=== PATIENT | female | born 1985 | race Caucasian/White ===

== ENCOUNTER → 2018-05-28 11:29 | Outpatient (CLI) | payer OTHER, MEDICAID, SELFPAY ==
[2018-05-28 12:42] LABS: Alanine Aminotransferase 21 IU/L (9-52); Albumin 4.4 g/dL (3.5-5.0); Albumin Globulin Ratio 1.4 (1.0-2.8); Alkaline Phosphatase 92 U/L (38-126); Aspartate Aminotransferase 18 IU/L (14-36); BUN Creatinine Ratio 12.9 (6-22); Bilirubin Total 0.5 mg/dL (0.2-1.3); Blood Urea Nitrogen 9 mg/dL (7-17); Calcium 9.6 mg/dL (8.4-10.2); Carbon Dioxide 27 mmol/L (22-32); Chloride 102 mmol/L (98-107); Cholesterol 148 mg/dL (140-199); Estimated Glomerular Filt Rate > 60.0 mL/min (>60); Globulin 3.2 g/dL (1.7-4.1); Glucose 89 mg/dL (70-100); HDL Cholesterol 53 mg/dL (40-60); HEMOLYSIS < 15 (0-50); LDL Cholesterol Calculated 70 mg/dL (<100); Potassium 4.2 mmol/L (3.4-5.1); Sodium 137 mmol/L (137-145); Total Protein 7.6 g/dL (6.3-8.2); Triglycerides 125 mg/dL (35-150)
[2018-05-28 12:58] LABS: HCG Quantitative /Beta subunit 376.87 mIU/mL
[2018-05-28 13:11] LABS: TSH w/ Reflex to FT4 1.29 uIU/mL (0.47-4.68)
== END ==
PROVIDERS: PCP Family Medicine; Visit Provider Family Medicine
DX: E66.01 Morbid (severe) obesity due to excess calories (principal); Z68.41 Body mass index [BMI] 40.0-44.9, adult; F32.5 Major depressive disorder, single episode, in full remission; Z32.00 Encounter for pregnancy test, result unknown
CPT/HCPCS: 36415; 80053; 80061; 84443; 84702

== ENCOUNTER → 2018-06-28 14:31 | Outpatient (CLI) | payer OTHER, MEDICAID, SELFPAY ==
[2018-06-28 15:00] LABS: Add Manual Diff / Slide Review NO; Basophils Percent Auto 0.5 % (0-2); Eosinophils Percent Auto 4.4 % (2-4); Hematocrit 39.4 % (36-46); Hemoglobin 13.6 g/dL (12.0-16.0); Lymphocytes Percent Auto 17.1 % (25-40); Mean Corpuscular HGB Conc 34.6 % (30-36); Mean Corpuscular Hemoglobin 30.8 PG (26-34); Neutrophils Absolute Auto 5800 /uL (3000-5900); Platelet Count 202 X10^3/uL (150-400); Red Blood Cell Count 4.43 X10^6/uL (4.0-5.2); Red Cell Distribution Width 13.7 % (11.6-14.8)
[2018-06-28 18:15] LABS: HIV 1 and 2 Antibody NEGATIVE (NEGATIVE); Hep C Virus Ab w/Reflex Quant NEGATIVE s/c (NEGATIVE); Hepatitis B Surface Antigen NEGATIVE s/c (NEGATIVE); Rubella Antibody IgG 21.8 IU/mL (>15)
[2018-06-30 11:35] LABS: Varicella IgG Antibody < 135.00 Index (< 135.00)
[2018-06-30 11:52] LABS: HSV 2 IGG AB < 0.90 index (< 0.90)
[2018-07-02 08:38] LABS: Rapid Plasma Reagin NON-REACTIVE
== END ==
PROVIDERS: PCP Family Medicine; Visit Provider Obstetrics & Gynecology
DX: Z34.91 Encounter for supervision of normal pregnancy, unspecified, first trimester (principal)
CPT/HCPCS: 36415; 80055; 86695; 86696; 86703; 86787; 86803; 86850; 86900; 86901; 87086

== ENCOUNTER → 2018-08-23 15:36 | Outpatient (CLI) | payer OTHER, MEDICAID, SELFPAY ==
[2018-08-27 12:14] LABS: AFP, Serum 30.2 ng/mL; Cigarette Smoker NOT GIVEN; Donated Egg NOT GIVEN; Donor Egg Age NOT GIVEN; Estriol, Free 0.62 ng/mL; Inhibin A, Dimeric 187 pg/mL; Maternal Ethnicity CAUCASIAN; Maternal Weight 272 lbs; Number of Fetuses 1; Previous Pregnancy Down Syndro NOT GIVEN; hCG, MoM 2.18
== END ==
PROVIDERS: PCP Family Medicine; Visit Provider Obstetrics & Gynecology
DX: Z34.92 Encounter for supervision of normal pregnancy, unspecified, second trimester (principal)
CPT/HCPCS: 36415; 82105; 82677; 84702; 86336

== ENCOUNTER → 2018-09-15 10:13 | Outpatient (CLI) | payer OTHER, MEDICAID, SELFPAY ==
--- NOTE | 2018-09-15 10:16 | DI.US.S_ITS ---
PROCEDURE: US OB >= 14 WEEKS FETUS INDICATIONS: anatomy scan OUTSIDE/PRIOR DATING DATA: Last menstrual period (LMP): Unknown. LMP-based estimated date of delivery (ASMY): N./A.. First dating scan (date and location): 06/28/18. Estimated date of delivery (SAMY) from first dating scan: 01/31/19. TECHNIQUE: Real-time scanning was performed of the fetus, with image documentation and biometric measurements. Endovaginal scanning: No COMPARISON: [facility], , OB >= 14 WEEKS FETUS, 07/23/2018, 16:24. FINDINGS: General: A single living intrauterine gestation is present. Presentation: Breech. Placenta: Placental position is anterior, without previa. Amniotic fluid index: 14.5 cm, normal range is 5-24 cm. heart rate: 149 beats per minute. Maternal cervical canal: 3.1 cm long. Normal lower limit is 2.5 cm. biometrics: Biparietal diameter: 20 weeks 2 days Head circumference: 20 weeks 2 days Abdominal circumference: 20 weeks 5 days Femur length: 19 weeks 6 days Estimated gestational age from initial scan: 20 weeks 2 days Composite gestational age from present scan: 20 weeks 2 days Estimated weight and percentile: 344 g; 45th percentile Measurement variability for biometric dating: +/- 7 days from 14 weeks to 15 weeks 6 days gestation, +/- 10 days from 16 weeks to 21 weeks 6 days gestation, +/- 2 weeks from 22 weeks to 27 weeks 6 days gestation, +/- 3 weeks for 28 weeks gestation or later. weight reference: 4500 g or EFW >90/95% is considered macrosomia or large for gestational age. EFW <10% is small for gestational age. EFW 5% or less is considered intra-uterine growth restriction. Anatomic survey: Neuro: Ventricles are non-dilated at less than 10 mm. Cisterna magna is normal at 3-11 mm. Cerebellum is normal in size and morphology. Nuchal skin fold: Normal at less than 6 mm between 14-21 weeks gestational age. Face: Nose and lips appear normal, and the facial profile is suboptimally visualized. Spine: No evidence for spina bifida. Heart: 4-chambered heart is present, with normal ventricular outflow tracts. Diaphragm: Diaphragm is intact. Stomach: Left-sided stomach is present. Kidneys: No hydronephrosis. Normal is less than 5 mm in 2nd trimester, less than 7 mm in 3rd trimester. Cord: 3-vessel cord has orthotopic insertion. Placental cord insertion site not well seen. Bladder: Normal in size. Extremities: All 4 extremities identified. IMPRESSION: 1. Single living IUP redemonstrated and interval growth is normal. 2. Placental cord insertion and facial profile not well seen, otherwise normal anatomy. Dictated by: Paramjit Mejia [facility] Interpreted: Dick Hodge MD on 09/15/2018 at 11:25 Approved by: Dick Hodge M.D. on 09/15/2018 at 15:39
== END ==
PROVIDERS: PCP Family Medicine; Visit Provider Obstetrics & Gynecology
DX: Z34.92 Encounter for supervision of normal pregnancy, unspecified, second trimester (principal); Z36.89 Encounter for other specified antenatal screening; Z3A.20 20 weeks gestation of pregnancy
CPT/HCPCS: 76811

== ENCOUNTER → 2018-10-20 14:05 | Outpatient (CLI) | payer OTHER, MEDICAID, SELFPAY ==
[2018-10-20 15:54] LABS: Hematocrit 36.8 % (36-46); Hemoglobin 12.5 g/dL (12.0-16.0)
[2018-10-20 16:17] LABS: GTT (PREG) 1 Hour PP 50gm Dose 96 mg/dL (76-139)
== END ==
PROVIDERS: PCP Family Medicine; Visit Provider Obstetrics & Gynecology
DX: Z34.82 Encounter for supervision of other normal pregnancy, second trimester (principal)
CPT/HCPCS: 36415; 82950; 85014; 85018; 86850

== ENCOUNTER 2018-12-01 02:27 | Observation (INO) | payer OTHER, MEDICAID, SELFPAY ==
[2018-12-01 03:21] VITALS: BP 159/99; PULSE 94
[2018-12-01] MEDS: LABETALOL 100 MG TABLET PO (03:21)
[2018-12-01] MEDS: ONDANSETRON 4 MG ODT 8 MG PO (03:27)
[2018-12-01 03:35] LABS: Add Manual Diff / Slide Review NO; Basophils Absolute Auto 100 /uL (0-100); Basophils Percent Auto 0.6 % (0-2); Eosinophils Absolute Auto 500 /uL (0-450); Eosinophils Percent Auto 4.2 % (2-4); Hematocrit 37.2 % (36-46); Hemoglobin 12.6 g/dL (12.0-16.0); Lymphocytes Absolute Auto 2000 /uL (1100-4500); Lymphocytes Percent Auto 17.8 % (25-40); Mean Corpuscular HGB Conc 33.8 % (30-36); Mean Corpuscular Hemoglobin 31.2 PG (26-34); Mean Corpuscular Volume 92.4 fL (80-100); Monocytes Absolute Auto 600 /uL (0-900); Monocytes Percent Auto 5.8 % (3-14); Neutrophils Absolute Auto 7900 /uL (1500-7000); Neutrophils Percent Auto 71.6 % (50-75); Platelet Count 174 X10^3/uL (150-400); Red Blood Cell Count 4.03 X10^6/uL (4.0-5.2); Red Cell Distribution Width 13.5 % (11.6-14.8)
[2018-12-01 03:36] LABS: Creatinine Urine Random 22.4 mg/dL
[2018-12-01 03:42] LABS: Aspartate Aminotransferase 12 IU/L (14-36); Blood Urea Nitrogen 6 mg/dL (7-17); Estimated Glomerular Filt Rate > 60.0 mL/min (>60); Uric Acid 5.5 mg/dL (2.5-6.2)
[2018-12-01 03:43] LABS: Microalbumi Creatinin Ratio Ur 26.7 ug/mg CR (<30); Microalbumin Urine Random < 0.6 mg/dL (0-1.6)
== END 2018-12-01 05:00 | disposition home or self-care (01) ==
LOC: LABOR 02:30
PROVIDERS: Admitting Provider Family Medicine; PCP Family Medicine; Visit Provider Family Medicine
DX: O16.3 Unspecified maternal hypertension, third trimester (principal); Z3A.31 31 weeks gestation of pregnancy
CPT/HCPCS: 36415; 59025; 59050; 82043; 82570; 84450; 84550; 85025; G0378; G0379

== ENCOUNTER → 2018-12-29 11:17 | Outpatient (CLI) | payer OTHER, MEDICAID, SELFPAY ==
[2018-12-30 12:36] LABS: Strep Grp B PCR NEG for Grp B Strep
== END ==
PROVIDERS: PCP Family Medicine; Visit Provider Obstetrics & Gynecology
DX: Z3A.35 35 weeks gestation of pregnancy (principal)
CPT/HCPCS: 87653

== ENCOUNTER 2019-01-09 11:30 | Observation (INO) | payer OTHER, MEDICAID, SELFPAY ==
[2019-01-09 13:07] LABS: Add Manual Diff / Slide Review NO; Basophils Absolute Auto 100 /uL (0-100); Basophils Percent Auto 0.5 % (0-2); Eosinophils Absolute Auto 200 /uL (0-450); Eosinophils Percent Auto 1.5 % (2-4); Hematocrit 37.2 % (36-46); Hemoglobin 12.5 g/dL (12.0-16.0); Lymphocytes Absolute Auto 1800 /uL (1100-4500); Lymphocytes Percent Auto 16.4 % (25-40); Mean Corpuscular HGB Conc 33.7 % (30-36); Monocytes Absolute Auto 700 /uL (0-900); Neutrophils Absolute Auto 8300 /uL (1500-7000); Neutrophils Percent Auto 75.6 % (50-75); Platelet Count 179 X10^3/uL (150-400); Red Blood Cell Count 4.04 X10^6/uL (4.0-5.2); Red Cell Distribution Width 13.2 % (11.6-14.8); White Blood Cell Count 10.9 X10^3/uL (4.5-11.0)
[2019-01-09 13:17] LABS: Aspartate Aminotransferase 14 IU/L (14-36); Blood Urea Nitrogen 6 mg/dL (7-17); Estimated Glomerular Filt Rate > 60.0 mL/min (>60); Uric Acid 5.9 mg/dL (2.5-6.2)
== END 2019-01-09 13:34 | disposition home or self-care (01) ==
LOC: LABOR 11:31
PROVIDERS: Admitting Provider Obstetrics & Gynecology; PCP Family Medicine; Visit Provider Obstetrics & Gynecology
DX: O26.893 Other specified pregnancy related conditions, third trimester (principal); R03.0 Elevated blood-pressure reading, without diagnosis of hypertension; Z3A.36 36 weeks gestation of pregnancy
CPT/HCPCS: 36415; 59025; 59050; 84450; 84550; 85025; G0378; G0379

== ENCOUNTER 2019-01-12 11:21 | Outpatient (CLI) | payer OTHER, MEDICAID, SELFPAY ==
--- NOTE | 2019-01-12 11:47 | PM.OBTRLD ---
Visit Information Visit Information Date of evaluation: 01/12/19 Primary OB Provider: Rozina Kilpatrick Reason for Evaluation: Yes non-stress test non-stress test reason: hypertension/pre-eclampsia and other (Contractions) PFSH Medical History DJD (degenerative joint disease), lumbosacral (Chronic) Obesity (Chronic) Sleep apnea (Chronic) depression (Resolved) Surgical History History of microdiscectomy (Resolved 11/2015) History of third molar tooth extraction (Resolved) Status post epidural steroid injection (Resolved 03/2016) Social History Smoking Status: Former smoker Social History Smoking Status: Former smoker Evaluation Evaluation Baseline heart rate: 135 monitor accelerations: Present monitor decelerations: Absent Contraction Frequency (minutes): 15 Uterine Contraction Intensity: Mild Category of Tracing: I Diagnosis, Plan/Disposition Final Diagnosis (1) 37 weeks gestation of : Current Visit: Yes Status: Acute (2) Gestational hypertension: Current Visit: Yes Status: Acute Plan/Disposition Plan: Discharge to home Follow-up 1 week OB Disposition: home
== END 2019-01-12 11:50 | disposition home or self-care (01) ==
LOC: LABOR 11:50 → OB 01-14 10:53
PROVIDERS: PCP Family Medicine; Visit Provider Obstetrics & Gynecology
DX: Z34.83 Encounter for supervision of other normal pregnancy, third trimester (principal); Z3A.37 37 weeks gestation of pregnancy
CPT/HCPCS: 59025; G0378; G0379

== ENCOUNTER 2019-01-22 20:24 | Outpatient (CLI) | payer OTHER, MEDICAID, SELFPAY | END 2019-01-22 22:05 | disposition home or self-care (01) | LOC: OB 01-24 12:56 | PROVIDERS: PCP Family Medicine; Visit Provider Obstetrics & Gynecology | DX: O21.8 Other vomiting complicating pregnancy (principal); Z3A.38 38 weeks gestation of pregnancy | CPT/HCPCS: 59025; 59050; G0378; G0379 ==

== ENCOUNTER 2019-01-27 13:46 | Outpatient (CLI) | payer OTHER, MEDICAID, SELFPAY ==
[2019-01-27 14:47] LABS: Appearance Urine UA CLEAR; Bilirubin Urine UA NEGATIVE (NEGATIVE); Color Urine UA YELLOW; Glucose Urine UA NEGATIVE (Negative); Ketones Urine UA NEGATIVE (NEGATIVE); Leukocyte Esterase Urine UA NEGATIVE (NEGATIVE); Nitrite Urine UA NEGATIVE (Negative); Occult Blood Urine UA NEGATIVE (Negative); Protein Urine UA NEGATIVE (Negative); RBC Urine None Seen (0-5/HPF); Urobilinogen Urine UA 0.2 E.U./dL (0.2); pH Urine UA 7.5 (4.5-8.0)
[2019-01-27 14:53] LABS: Amorphous Sediment Urine 1+; Bacteria Urine Occasional (0-1); Squamous Epithelial Cell Urine 1-5 /HPF; WBC Urine 0-1/HPF (0-5/HPF)
[2019-01-27 14:54] LABS: Culture Indicated Urine Cult Not Indicated; Mucus Urine 1+ (Negative)
== END 2019-01-27 15:01 | disposition home or self-care (01) ==
LOC: OB 01-28 13:20
PROVIDERS: PCP Family Medicine; Visit Provider Obstetrics & Gynecology
DX: O47.1 False labor at or after 37 completed weeks of gestation (principal); Z3A.39 39 weeks gestation of pregnancy; O13.9 Gestational [pregnancy-induced] hypertension without significant proteinuria, unspecified trimester
CPT/HCPCS: 59025; 81001; G0378; G0379

== ENCOUNTER 2019-01-27 21:32 | Inpatient (IN) | payer OTHER, MEDICAID, SELFPAY ==
[2019-01-27] MEDS: OXYTOCIN 10 UNIT/ML VIAL IM (22:05)
--- NOTE | 2019-01-27 22:23 | PM.OBPRVD ---
Delivery date: 01/27/19 Intrapartal events: None and Precipitous Labor < 3 hours Induction method: none Delivery augmentation: rupture of membranes Delivery monitor: external FHT and external uterine Route of delivery: L&D Laceration Description: None Estimated blood loss (mL): 200 Anesthesia type: None Complications: None Narrative: The patient is a 33-year-old three para two who was at 39 and half weeks. Patient had uneventful . She did have elevated blood pressures in the last couple of weeks and was placed on labetalol 200 mg p.o. t.i.d. and had normal blood pressures. Laboratory studies were all normal. Patient is group B strep negative. She is Rh negative and received RhoGAM at 28 weeks. Patient presented at 9 cm. Membranes were ruptured and the patient quickly delivered a live-born female infant with scores of nine at 1 min and nine at 5 min in good condition. There were no perineal tears no cervical tears and no vaginal tears. The placenta delivered spontaneously. Cord had three vessels. This may blood loss was 200 cc. Plan for aftercare: Routine Labetalol 200 mg p.o. t.i.d. IV labetalol if necessary
[2019-01-27] MEDS: OXYCODONE/ACETAMINOPHEN 5/325 TABLET 2 TAB PO (22:40)
[2019-01-27] MEDS: IBUPROFEN 600 MG TABLET PO (22:40)
[2019-01-28] MEDS: LABETALOL 100 MG TABLET 200 MG PO ×4 (00:23→21:04)
[2019-01-28] MEDS: IBUPROFEN 600 MG TABLET PO ×3 (06:59→23:42)
[2019-01-28 07:59] VITALS: BP 202/12; PULSE 78
[2019-01-28] MEDS: LABETALOL 20 MG/4 ML SYRINGE 10 MG IV (07:59)
[2019-01-28] MEDS: ONDANSETRON 4 MG/2 ML INJ IV (07:59)
[2019-01-28 08:05] VITALS: BP 184/104
[2019-01-28 09:08] LABS: Aspartate Aminotransferase 56 IU/L (14-36); BUN Creatinine Ratio 15.7 (6-22); Blood Urea Nitrogen 11 mg/dL (7-17); Estimated Glomerular Filt Rate > 60.0 mL/min (>60); Uric Acid 6.8 mg/dL (2.5-6.2)
[2019-01-28 09:16] LABS: Add Manual Diff / Slide Review NO; Basophils Absolute Auto 100 /uL (0-100); Basophils Percent Auto 0.6 % (0-2); Eosinophils Absolute Auto 100 /uL (0-450); Eosinophils Percent Auto 1.4 % (2-4); Hemoglobin 12.3 g/dL (12.0-16.0); Lymphocytes Absolute Auto 1900 /uL (1100-4500); Lymphocytes Percent Auto 18.2 % (25-40); Mean Corpuscular HGB Conc 34.1 % (30-36); Mean Corpuscular Hemoglobin 30.9 PG (26-34); Mean Corpuscular Volume 90.6 fL (80-100); Monocytes Absolute Auto 700 /uL (0-900); Monocytes Percent Auto 6.2 % (3-14); Neutrophils Absolute Auto 7800 /uL (1500-7000); Neutrophils Percent Auto 73.6 % (50-75); Platelet Count 186 X10^3/uL (150-400); Red Blood Cell Count 3.98 X10^6/uL (4.0-5.2); Red Cell Distribution Width 13.2 % (11.6-14.8); White Blood Cell Count 10.6 X10^3/uL (4.5-11.0)
[2019-01-28 10:31] VITALS: BP 178/107; PULSE 86
[2019-01-28 10:32] VITALS: BP 175/107; PULSE 86
[2019-01-28] MEDS: LABETALOL 20 MG/4 ML SYRINGE IV (10:32)
[2019-01-28 11:38] LABS: Bilirubin Urine UA NEGATIVE (NEGATIVE); Color Urine UA YELLOW; Glucose Urine UA NEGATIVE (Negative); Ketones Urine UA NEGATIVE (NEGATIVE); Leukocyte Esterase Urine UA TRACE (NEGATIVE); Nitrite Urine UA NEGATIVE (Negative); Occult Blood Urine UA 3+ (Negative); Protein Urine UA NEGATIVE (Negative); Specific Gravity Urine UA <=1.005 (1.000-1.035); Urobilinogen Urine UA 0.2 E.U./dL (0.2)
[2019-01-28 11:43] LABS: Appearance Urine UA Slightly Cloudy
[2019-01-28 11:46] LABS: Bacteria Urine Occasional (0-1); RBC Urine 30-100/HPF (0-5/HPF); WBC Urine 0-1/HPF (0-5/HPF)
[2019-01-28 11:47] LABS: Culture Indicated Urine Specimen Cultured
[2019-01-28] MEDS: OXYCODONE/ACETAMINOPHEN 5/325 TABLET 2 TAB PO ×3 (11:48→21:07)
[2019-01-28 16:49] VITALS: BP 149/93; PULSE 78
[2019-01-28 21:04] VITALS: BP 175/109; PULSE 73
[2019-01-29] MEDS: OXYCODONE/ACETAMINOPHEN 5/325 TABLET 2 TAB PO ×3 (05:30→21:00)
[2019-01-29] MEDS: IBUPROFEN 600 MG TABLET PO ×3 (06:40→21:00)
--- NOTE | 2019-01-29 09:15 | P.PNOB_ITS ---
Subjective - OB Patient comments: tolerating diet, flatus present and other (Marginal pain control) baby status: other (Baby very jittery with low blood sugar may be secondary to opiate addiction) feeding status: exclusively breast feeding Narrative: Patient is a 33-year-old status post rapid precipitous delivery. Patient is a chronic hypertensive who was on 200 mg t.i.d. of labetalol. Patient also had a chronic pain syndrome and took at least three Vicodin a day during the . the patient's blood pressures have been elevated requiring her standard p.o. labetalol dose plus intermittent 20 mg doses of IV labetalol. She has mildly elevated liver function tests. Platelets are normal. Her uric acid is mildly elevated. Her urine protein is negative. Her blood pressures have fluctuated widely from a low of of 149/87 to a high of 174/107. The difference appears to be movement and pain related. Date Patient Seen: 01/29/19 Time Patient Seen: 09:13 Interval history: Please see above Exam Vital Signs (past 8 hours): Fundus U minus three Lochia scant Reflexes were 1+ or less Objective Labs Result Diagrams: 01/28/19 09:05 01/28/19 08:55 Labs: Laboratory Results - last 24 hr 01/28/19 01/28/19 01/28/19 08:55 09:05 11:20 WBC 10.6 RBC 3.98 L Hgb 12.3 Hct 36.0 MCV 90.6 MCH 30.9 MCHC 34.1 RDW 13.2 Plt Count 186 Neut % (Auto) 73.6 Lymph % (Auto) 18.2 L [place] % (Auto) 6.2 Eos % (Auto) 1.4 L Baso % (Auto) 0.6 Neut # (Auto) 7800 H Lymph # (Auto) 1900 [place] # (Auto) 700 Eos # (Auto) 100 Baso # (Auto) 100 BUN 11 Creatinine 0.70 Estimated GFR > 60.0 BUN/Creatinine Ratio 15.7 Uric Acid 6.8 H AST 56 H Urine Color Yellow Urine Appearance Slightly cloudy Urine pH 7.0 Ur Specific [place] <=1.005 Urine Protein Negative Urine Glucose (UA) Negative Urine Ketones Negative Urine Occult Blood 3+ H Urine Nitrate Negative Urine Bilirubin Negative Urine Urobilinogen 0.2 Ur Leukocyte Esterase Trace H Urine RBC 30-100/hpf H D Urine WBC 0-1/hpf Urine Bacteria Occasional (0-1) Ur Culture Indicated? Specimen cultured Assessment & Plan (1) Chronic hypertension complicating or reason for care during childbirth: Status: Acute Assessment and plan: Will continue on labetalol 200 t.i.d. Will repeat CBC, liver function tests and renal function tests Current Visit: Yes Plan day: 2 plan OB: other (Monitor blood pressure) Time Spent With Patient Total time spent is greater than 50% in coordination of care (as documented) at patient's floor/unit and/or counseling patient: less than 15 minutes
[2019-01-29 09:22] VITALS: BP 149/87; PULSE 79
[2019-01-29] MEDS: LABETALOL 100 MG TABLET 200 MG PO ×3 (09:22→20:53)
[2019-01-29] MEDS: PRENATAL VIT,CALC/IRON/FOLIC 1 TABLET 1 TAB PO (09:24)
[2019-01-29] MEDS: DOCUSATE 250 MG CAPSULE PO (09:24)
[2019-01-29 10:05] LABS: Add Manual Diff / Slide Review NO; Basophils Absolute Auto 100 /uL (0-100); Basophils Percent Auto 0.6 % (0-2); Eosinophils Absolute Auto 100 /uL (0-450); Eosinophils Percent Auto 1.1 % (2-4); Hematocrit 35.3 % (36-46); Hemoglobin 11.9 g/dL (12.0-16.0); Lymphocytes Absolute Auto 1800 /uL (1100-4500); Lymphocytes Percent Auto 21.5 % (25-40); Mean Corpuscular HGB Conc 33.7 % (30-36); Mean Corpuscular Hemoglobin 30.9 PG (26-34); Mean Corpuscular Volume 91.6 fL (80-100); Monocytes Absolute Auto 400 /uL (0-900); Monocytes Percent Auto 4.5 % (3-14); Neutrophils Absolute Auto 6200 /uL (1500-7000); Neutrophils Percent Auto 72.3 % (50-75); Platelet Count 191 X10^3/uL (150-400); Red Blood Cell Count 3.85 X10^6/uL (4.0-5.2); Red Cell Distribution Width 13.5 % (11.6-14.8); White Blood Cell Count 8.5 X10^3/uL (4.5-11.0)
[2019-01-29 10:15] LABS: Aspartate Aminotransferase 23 IU/L (14-36); Estimated Glomerular Filt Rate > 60.0 mL/min (>60); Uric Acid 7.4 mg/dL (2.5-6.2)
[2019-01-29 16:11] VITALS: BP 168/90; PULSE 78
[2019-01-29] MEDS: LANOLIN OINT 7 GM 1 APPLIC TOP (17:02)
[2019-01-29 20:53] VITALS: BP 156/84; PULSE 88
[2019-01-29] MEDS: CALCIUM CARBONATE 500 MG TAB 1000 MG PO (22:46)
[2019-01-30] MEDS: OXYCODONE/ACETAMINOPHEN 5/325 TABLET 2 TAB PO ×4 (01:35→14:37)
[2019-01-30 06:33] VITALS: BP 222/109
[2019-01-30] MEDS: LABETALOL 100 MG TABLET 200 MG PO ×2 (06:33→14:36)
[2019-01-30] MEDS: IBUPROFEN 600 MG TABLET PO ×2 (06:35→13:15)
[2019-01-30] MEDS: PRENATAL VIT,CALC/IRON/FOLIC 1 TABLET 1 TAB PO (09:09)
[2019-01-30] MEDS: DOCUSATE 250 MG CAPSULE PO (09:10)
--- NOTE | 2019-01-30 09:53 | P.DS_ITS ---
Discharge Providers Date of admission: 01/27/19 21:32 Discharge Date: 01/30/19 Primary care physician: Mikayla Aly DO Consults: 01/27/19 22:12 Consult to Strike Operations Officer Routine Comment: Discharge provider: Jammie Lui DO Summary Date Patient Seen: 01/30/19 Time Patient Seen: 09:30 Procedures: Spontaneous vaginal delivery Hospital Course: Patient is a 33 year old s/p precipitous vaginal delivery on 01/28/[address] Peña. was complicated by chronic hypertension managed with labetalol 200 mg TID and chronic pain on hydrocodone throughout . blood pressures were quite elevated despite usual labetalol and prn IV labetalol. Initial AST was mildly elevated however repeat normal. Platelets normal. Urine protein was negative. Patient denied headache, vision changes, RUQ pain or LE edema. Exacerbation of chronic hypertension felt to be due to pain and stress (issues with , concerns for withdrawal, hypoglycemia) rather than superimposed pre-eclampsia. Pressures ranged from 140's/80's to 220's/100's. Day of discharge blood pressure came down to 150's/80's after nifedipine and usual labetalol. Issues in resolved and she was eager to return home to her and three other children. Vaginal bleeding was light to moderate. She was breast and bottle feeding as she did with her older children. Pain was controlled with Percocet throughout her hospitalization. Patient declined percocet on discharge stating she had her usual hydrocodone at home. Recommended ibuprofen as well. Instructed patient to call first thing Thursday morning to schedule a blood pressure check in 2-3 days when she brings her to clinic. Patient aware of symptoms of pre-eclampsia and signs/symptoms to return to the center. She was very eager to return home and increasingly stressed and frustrated having to stay in the hospital which was likely negatively impacting her blood pressure. She was discharged on her usual labetalol as well as a new prescription for nifedine. Peripartum Data Infant Delivery Method: Natural Vaginal Laceration description: None complications: other (Uncontrolled hypertension) 1: Gender: Female Disposition of : home Discharge Diagnosis (1) Chronic hypertension complicating or reason for care during childbirth: Status: Acute (2) Gestational hypertension: Status: Acute (3) Spontaneous vaginal delivery: Status: Acute (4) 39 weeks gestation of : Status: Acute Status at Discharge Cognitive/behavioral status at discharge: at baseline, oriented Overall status at discharge: patient is back to baseline Time Spent with Patient Total time spent providing and/or coordinating discharge services: Less than 30 minutes Objective Labs Result Diagrams: 01/29/19 10:00 01/29/19 10:00 Labs: Laboratory Results - last 24 hr 01/29/19 01/29/19 10:00 10:00 WBC 8.5 RBC 3.85 L Hgb 11.9 L Hct 35.3 L MCV 91.6 MCH 30.9 MCHC 33.7 RDW 13.5 Plt Count 191 Neut % (Auto) 72.3 Lymph % (Auto) 21.5 L [place] % (Auto) 4.5 Eos % (Auto) 1.1 L Baso % (Auto) 0.6 Neut # (Auto) 6200 Lymph # (Auto) 1800 [place] # (Auto) 400 Eos # (Auto) 100 Baso # (Auto) 100 Creatinine 0.70 Estimated GFR > 60.0 Uric Acid 7.4 H AST 23 Exam Vital Signs (past 8 hours): - 01/30/19 06:33 Blood Pressure 222/109 H Narrative Exam Narrative: General: Morbidly obese woman. Awake and alert, no acute distress. HEENT: NCAT, EOMI, moist oral mucosa CV: Regular rate and rhythm, no murmurs, rubs or gallops Lungs: CTAB, no wheezes, rales, or rhonchi Abdomen: Soft, nontender; bowel tones active; uterus firm 1 cm below umbilicus Extremities: Warm, no edema, 2+ pedal pulses bilaterally Neuro: 1/4 bilateral patellar reflexes. No clonus. Discharge Plan Discharge Plan Patient Disposition: Home Discharge comment: Patient instructed to check blood pressure daily. Will follow up in clinic in 2-3 days for blood pressure check. Counseled to call for fevers, severe pain or bleeding through more than a pad an hour. Discharge Med Rec/Prescriptions Prescriptions: New nifedipine 30 mg Tablet Extended Release 24hr 30 mg PO DAILY Qty: 30 RF: 0 ibuprofen 600 mg Tablet 600 mg PO Q6HR PRN (Reason: Pain, Mild (1-3)) Qty: 30 RF: 0 Continued albuterol sulfate [Proventil HFA] 90 MCG/PUFF HFA aerosol inhaler 2 puff INH Q4-6H Qty: 1 RF: 11 bupropion HCl 150 mg tablet sustained-release 12 hr 150 mg PO BID Qty: 60 RF: 5 hydrocodone-acetaminophen 5-325 mg tablet 1 tab PO Q6HP PRN (Reason: pain) Qty: 90 RF: 0 labetalol 200 mg tablet 200 mg PO TID RF: 0 Follow up/Referrals: Rozina Kilpatrick MD [Physician] - 3-5 Days (Patient instructed to call for a nurse visit to check blood pressure when she brings her in this week Also needs [address] Kilpatrick) Discharge Data Primary Care Provider: Mikayla Aly Attending Provider: Rikki Peña Admit Date/Time: 01/27/19 21:32
[2019-01-30] MEDS: NIFEdipine 30 MG TAB ER PO (10:19)
[2019-01-30 14:36] VITALS: BP 155/90; PULSE 81
[2019-01-30 16:01] VITALS: BP 155/90; PULSE 81; RESP 18; TEMP 36.6
== END 2019-01-30 16:30 | disposition home or self-care (01) | DRG 806 ==
PROVIDERS: PCP Family Medicine
DX: O62.3 Precipitate labor (principal); O10.92 Unspecified pre-existing hypertension complicating childbirth; Z37.0 Single live birth; Z3A.39 39 weeks gestation of pregnancy
CPT/HCPCS: 36415; 59400; 59409; 81001; 82565; 84450; 84550; 85025; 87086; J2405; J2590

== ENCOUNTER → 2019-02-11 11:28 | Outpatient (CLI) | payer OTHER, MEDICAID, SELFPAY ==
[2019-02-11 11:54] LABS: Influenza A and B by PCR Rapid Negative (Negative)
== END ==
PROVIDERS: PCP Family Medicine; Visit Provider Physician Assistant
DX: R68.89 Other general symptoms and signs (principal)
CPT/HCPCS: 87400

== ENCOUNTER → 2019-11-12 09:43 | Outpatient (CLI) | payer OTHER, MEDICAID, SELFPAY ==
--- NOTE | 2019-11-12 09:44 | DI.RAD.S_ITS ---
PROCEDURE: XR LUMBAR SPINE MIN 4V INDICATIONS: Chronic progressive low back pain TECHNIQUE: 4 total views of the lumbar spine were acquired, including bilateral oblique views. COMPARISON: [facility], MR, MR LUMBAR SPINE WO CON, 11/12/2019, 9:55. [facility], CR, L-SPINE 2-3 VIEWS, 11/21/2015, 13:35. FINDINGS: Bones: 5 nonrib-bearing vertebrae are present. There is normal bony alignment. No vertebral body compression fractures. No suspicious bony lesions. There is moderate to severe disc space narrowing seen at the L5-S1 level. There is bony bridging seen at this level. Vacuum disc phenomenon is seen at this level. The disc heights otherwise appear well-preserved. Age-appropriate lower thoracic spine degenerative changes are seen. Lower lumbar spine facet arthropathy is seen. Soft tissues: Overlying bowel gas pattern is normal. No suspicious soft tissue calcifications. Gallstones can be seen. Oblique images: No pars defects. IMPRESSION: Focal L5-S1 degenerative change. No pars defects are seen on the oblique views. Dictated by: Levon Rodriguez M.D. on 11/12/2019 at 10:50 Approved by: Levon Rodriguez M.D. on 11/12/2019 at 10:53
--- NOTE | 2019-11-12 09:44 | DI.MRI.S_ITS ---
PROCEDURE: MR LUMBAR SPINE WO CON INDICATIONS: Chronic progressive low back pain TECHNIQUE: Noncontrast sagittal T1 spin echo and T2 fast echo, sagittal STIR, axial T1 and T2 fast spin echo through the lumbar spine. In cases with scoliosis, additional coronal T2 fast spin echo may be performed. COMPARISON: [facility], CR, XR LUMBAR SPINE MIN 4V, 11/12/2019, 9:41. [facility], CR, L-SPINE 2-3 VIEWS, 06/05/2014, 13:06. [facility], MR, L-SPINE WITHOUT CONTRAST, 05/03/2015, 17:35. FINDINGS: Image quality: Limited by patient motion artifact Alignment and Curvature: There is normal bony alignment. Bones: Postsurgical changes compatible with prior right L5-S1 laminotomy or partial discectomy. Reactive endplate change is noted adjacent the L5-S1 disc. No acute vertebral body compression fractures. Spinal Cord: Conus medullaris terminates at the L1 level. Visualized cord demonstrates normal signal and size. Paraspinous Soft Tissues: No paravertebral masses. L1-L2: Normal appearance. L2-L3: Normal appearance. L3-L4: Normal appearance. L4-L5: Normal appearance. L5-S1: Loss of disc signal and height. Moderate, diffuse disc bulge. Mild bilateral facet hypertrophy. No central stenosis. Severe bilateral neural foraminal narrowing with compression of the exiting L5 nerve roots. IMPRESSION: 1. Postsurgical changes. 2. Moderate L5-S1 degenerative disc disease. 3. Mild L5-S1 facet arthropathy. 4. No central stenosis. Findings there is severe bilateral L5-S1 neural foraminal narrowing. 6. Compression of the exiting bilateral L5 nerve roots secondary to bilateral L5-S1 neural foraminal stenosis. Dictated by: Halle Coles MD, PhD on 11/14/2019 at 9:21 Approved by: Halle Coles MD, PhD on 11/14/2019 at 10:09
== END ==
PROVIDERS: PCP Family Medicine; Visit Provider Physical Medicine & Rehabilitation
DX: M54.5 Low back pain (principal); M47.817 Spondylosis without myelopathy or radiculopathy, lumbosacral region; M51.37 Other intervertebral disc degeneration, lumbosacral region; M48.07 Spinal stenosis, lumbosacral region; G89.29 Other chronic pain
CPT/HCPCS: 72110; 72148

== ENCOUNTER 2020-01-09 22:24 | Emergency (ER) | payer OTHER, MEDICAID, SELFPAY ==
[2020-01-09 22:35] VITALS: BP 138/92; PULSE 87; RESP 20; TEMP 36.6; O2SAT 99
--- NOTE | 2020-01-09 22:38 | ED_ITS ---
HPI - Wound/Laceration General Chief Complaint: Wound/Laceration Stated Complaint: STABBED RIGHT HAND WITH KNIFE MIDDLE FINGER PAIN Time Seen by Provider: 01/09/20 22:32 Source: patient Mode of arrival: Ambulatory Limitations: no limitations History of Present Illness HPI narrative: Patient is a 34-year-old [id number] female who is up-to-date on immunizations here for evaluation of a wound that she sustained just prior to arrival. Patient states she was cleaning out her sink when she stabbed the palm her right hand with a knife that was in the sink. She states she did clean it out at home to include washing it and also putting some alcohol over the area. She states that since the event has happened she has had stiffness in her middle and ring fingers on the right hand. States it feels better to hold them in flexion. Surrounding erythema. Related Data Previous Rx's Medication Instructions Recorded albuterol sulfate 90 mcg/actuation 2 puff INHALATION Q4-6H #1 inh 04/01/19 aerosol inhaler pramipexole 0.25 mg tablet 0.25 mg PO BEDTIME #180 tab 08/08/19 etonogestrel 0.12 mg-ethinyl 1 vaginalrin VAG Q4W #3 each 09/26/19 estradiol 0.015 mg/24 hr vaginal ring bupropion HCl 150 mg tablet,12 hr 150 mg PO BID #60 tab 09/29/19 sustained-release citalopram 20 mg tablet 30 mg PO DAILY #120 tab 11/04/19 cyclobenzaprine 10 mg tablet 10 mg PO BID #30 tab 12/05/19 diclofenac sodium 25 mg 25 mg PO TID #90 tab 12/05/19 tablet,delayed release hydrocodone 5 mg-acetaminophen 325 1 tab PO Q6HP PRN #90 tab 12/09/19 mg tablet metoprolol tartrate 25 mg tablet 25 mg PO BID #60 tab 12/21/19 duloxetine 30 mg capsule,delayed See Rx Instructions PO DAILY #60 12/26/19 release cap cephalexin [Keflex] 500 mg PO QID 5 Days #20 cap 01/09/20 Allergies Allergy/AdvReac Type Severity Reaction Status Date / Time codeine [CODEINE] Allergy Mild HIVES Verified 12/26/19 13:40 lisinopril [LISINOPRIL] AdvReac Mild cough Verified 12/26/19 13:40 Pain Contract Allergy Unknown Uncoded 12/26/19 13:40 Review of Systems Constitutional Constitutional: Denies fever(s) Musculoskeletal Musculoskeletal: Denies tingling Comments: Pain in the right hand especially the middle and ring fingers Integumentary/Breasts Comments: Puncture wound to the palm of the right and Neurologic Neurologic: Denies tingling Hematologic/Lymphatic Hematologic/Lymphatic: Denies easy bleeding and Denies easy bruising Patient History Medical History Chest wall contusion (Inactive) Chronic hypertension complicating or reason for care during childbirth (Inactive) DJD (degenerative joint disease), lumbosacral (Chronic) Facet arthropathy, lumbosacral (Chronic) Foraminal stenosis of lumbosacral region (Chronic) Gestational hypertension (Inactive) Left wrist sprain (Inactive) Mild tobacco use disorder, in early remission (08/28/15) Morbid obesity with BMI of 45.0-49.9, adult (Chronic) Obesity (Chronic) depression (Resolved) Sleep apnea (Chronic) Social History Smoking Status: Current some day smoker Smoking Status: Current some day smoker tobacco type: vaping Exam Initial Vital Signs Initial Vital Signs: Vital Signs Temperature 97.8 F 01/09/20 22:35 Pulse Rate 87 01/09/20 22:35 Respiratory Rate 20 01/09/20 22:35 Blood Pressure 138/92 H 01/09/20 22:35 Pulse Oximetry 99 01/09/20 22:35 Cardio Pulses: radial pulses present on the right Skin Other: Patient with a 0.5 cm puncture wound the palmar aspect of the right hand in the center of the palm. No active bleeding. Neuro General: alert and awake Sensory Exam: no sensory deficits noted Extrem General: capillary refill normal Other: Patient is holding her fingers in the right hand in flexion. She is able to extend the fingers however when done actively and passively has quite a bit of discomfort in the palm of her hand with doing this. However when she is distracted talking about other things that did see her extend her fingers. Course Orders Ordered: Discontinued Medications Cephalexin HCl (Keflex) 500 mg PO NOW ONE Stop: 01/09/20 22:39 Last Admin: 01/09/20 22:48 Dose: 500 mg Documented by: VANESSA Vital Signs Vital signs: Vital Signs - 8 hr 01/09/20 22:35 Temperature 97.8 F Pulse Rate 87 Respiratory Rate 20 Blood Pressure [Left Arm] 138/92 H Pulse Oximetry 99 MDM - Wound/Laceration MDM Narrative Medical decision making narrative: Her tetanus is up-to-date per her report. Given the fact this was a puncture wound on her hand with a eating utensil that was dirty in dishwater will start her on antibiotics. She was given a dose here and a prescription for follow-up. I have low suspicion for fracture. We can hold on radiologic studies. Patient is neurovascularly intact. I suspect the pain with extending her fingers on the right hand is related to the injury. I have low suspicion for a tendon injury because she is holding her fingers in flexion and she can extend them. There was a tendon injury in this area would suspect that she would not be able to flex her fingers. We did discuss the use of Tylenol and ibuprofen. She is given return precautions and follow-up instructions. She expressed understanding and agreement with plan. Discharge Plan Departure Patient Disposition: Home Clinical Impression: Puncture wound Discharge Date/Time: 01/09/20 23:01 Activity Restrictions/Additional Instructions: You can shower like normal. You can use soap and water and wash your right hand like normal. You can ice your hand as needed. Continue with your pain medications that you have at home. Contact your primary provider for follow-up. Return to the emergency department for any new or worsening symptoms. Your prescription was electronically transmitted to [facility] Prescriptions: New cephalexin [Keflex] 500 mg capsule 500 mg PO QID 5 Days Qty: 20 RF: 0 No Action bupropion HCl 150 mg tablet sustained-release 12 hr 150 mg PO BID Qty: 60 RF: 5 cyclobenzaprine 10 mg tablet 10 mg PO BID Qty: 30 RF: 0 diclofenac sodium 25 mg tablet,delayed release (DR/EC) 25 mg PO TID Qty: 90 RF: 0 hydrocodone-acetaminophen 5-325 mg tablet 1 tab PO Q6HP PRN (Reason: pain) Qty: 90 RF: 0 metoprolol tartrate 25 mg tablet 25 mg PO BID Qty: 60 RF: 1 pramipexole 0.25 mg tablet 0.25 mg PO BEDTIME Qty: 180 RF: 0 citalopram 20 mg tablet 30 mg PO DAILY Qty: 120 RF: 1 duloxetine 30 mg capsule,delayed release(DR/EC) See Rx Instructions PO DAILY Qty: 60 RF: 1 albuterol sulfate [Proventil HFA] 90 mcg/actuation HFA aerosol inhaler 2 puff Inhalation Q4-6H Qty: 1 RF: 11 etonogestrel-ethinyl estradiol 0.12-0.015 mg/24 hr ring 1 vaginalrin VAG Q4W Qty: 3 RF: 3 Referrals: Mikayla Aly DO [Primary Care Provider] -
[2020-01-09] MEDS: cephALEXin 250 MG CAPSULE 500 MG PO (22:48)
== END 2020-01-09 23:01 | disposition home or self-care (01) ==
PROVIDERS: Emergency Provider Emergency Medicine; PCP Family Medicine
DX: S61.431A Puncture wound without foreign body of right hand, initial encounter (principal); W26.0XXA Contact with knife, initial encounter
CPT/HCPCS: 99283

== ENCOUNTER 2020-08-08 15:44 | Emergency (ER) | payer OTHER, MEDICAID, SELFPAY ==
[2020-08-08 15:53] VITALS: BP 164/98; PULSE 98; RESP 16; TEMP 36.3; O2SAT 98
[2020-08-08] MEDS: AMPICILLIN/SULBACTAM 3 GM 3 GM in SODIUM CHLORIDE 0.9% 100 ML IV (16:41)
[2020-08-08 16:43] LABS: Add Manual Diff / Slide Review NO; Basophils Absolute Auto 100 /uL (0-100); Basophils Percent Auto 0.7 % (0-2); Eosinophils Absolute Auto 500 /uL (0-450); Eosinophils Percent Auto 4.8 % (2-4); Hematocrit 42.6 % (36-46); Hemoglobin 14.6 g/dL (12.0-16.0); Lymphocytes Absolute Auto 2300 /uL (1100-4500); Lymphocytes Percent Auto 23.3 % (25-40); Mean Corpuscular HGB Conc 34.2 % (30-36); Mean Corpuscular Hemoglobin 30.2 PG (26-34); Mean Corpuscular Volume 88.3 fL (80-100); Monocytes Absolute Auto 700 /uL (0-900); Monocytes Percent Auto 7.5 % (3-14); Neutrophils Absolute Auto 6400 /uL (1500-7000); Neutrophils Percent Auto 63.7 % (50-75); Platelet Count 232 X10^3/uL (150-400); Red Blood Cell Count 4.82 X10^6/uL (4.0-5.2); Red Cell Distribution Width 13.1 % (11.6-14.8)
[2020-08-08 16:57] LABS: BUN Creatinine Ratio 12.8 (6-22); Blood Urea Nitrogen 11 mg/dL (7-17); Calcium 9.6 mg/dL (8.4-10.2); Carbon Dioxide 34 mmol/L (22-32); Chloride 98 mmol/L (98-107); Estimated Glomerular Filt Rate > 60.0 mL/min (>60); Glucose 95 mg/dL (70-100); HEMOLYSIS < 15 (0-50); Lactate (Lactic Acid) 1.1 mmol/L (0.7-2.1); Potassium 4.1 mmol/L (3.4-5.1); Sodium 137 mmol/L (137-145)
[2020-08-08] MEDS: KETOROLAC 60 MG/2 ML VIAL 15 MG IV (17:28)
[2020-08-08 17:44] VITALS: BP 173/97; PULSE 70; RESP 16; O2SAT 97
--- NOTE | 2020-08-08 22:13 | ED_ITS ---
HPI - Dental/Oral <FACUNDO Villa - Last Filed: 08/08/20 22:35> General Chief complaint: Dental/Oral Stated complaint: sent by dentist for antibiotics Time Seen by Provider: 08/08/20 16:01 Source: patient Mode of arrival: Ambulatory Limitations: no limitations History of Present Illness HPI Narrative: This is a 34 year female, occasional smoker, who has history of depression, anxiety, hypertension and back pain presents to ED with chief complain of left lower dental pain which started yesterday. Patient reports yesterday pain was very severe and rates as 10/10 when she woke up in the morning. When she woke up this morning pain had subsided mildly but noticed swelling, redness, warmth spreading to her cheek with difficulty swallowing due to pain with jaw stiffness. Pain increases with chewing and cold temperature. She had to take half tab of hydrocodone last night that she uses for back pain occasionally. She also reports some headache and photosensitivity with left anterior cervical lymph node swelling and pain. She denies fever, chills but reports nausea and 4 episodes of emesis since last night. Patient made an emergent dental appointment with [facility] and she was able to seen today briefly but was recommended to going to ED for IV antibiotic medication treatment before formally seen at the dental clinic again for procedures. She was prescribed with Augmentin when she left the dental office today. She reports that x-rays were taken today that was reviewed by dentist and was told she has dental abscess. LMP 2 weeks ago and currently takes control pill. Related Data Previous Rx's Medication Instructions Recorded norgestimate 0.25 mg-ethinyl 1 tab PO DAILY #84 tab 01/23/20 estradiol 35 mcg tablet hydrocodone 5 mg-acetaminophen 325 1 tab PO Q6HP PRN #90 tab 03/05/20 mg tablet bupropion HCl 150 mg tablet,12 hr 150 mg PO BID #60 tab 03/14/20 sustained-release pramipexole 0.25 mg tablet 0.25 mg PO BEDTIME #180 tab 04/13/20 duloxetine 60 mg capsule,delayed 60 mg PO DAILY #90 cap 05/10/20 release albuterol sulfate 90 mcg/actuation 2 puff INHALATION Q4-6H #1 inh 05/28/20 aerosol inhaler metoprolol tartrate 25 mg tablet 25 mg PO BID #60 tab 06/13/20 trazodone 50 mg tablet 25 mg PO BEDTIME PRN #30 tab 06/13/20 Allergies Allergy/AdvReac Type Severity Reaction Status Date / Time codeine [CODEINE] Allergy Mild HIVES Verified 08/08/20 15:59 lisinopril [LISINOPRIL] AdvReac Mild cough Verified 08/08/20 15:59 Pain Contract Allergy Unknown Uncoded 08/08/20 15:59 Review of Systems <FACUNDO Villa - Last Filed: 08/08/20 22:35> Review of Systems Narrative: General: Denies fever, chills, fatigue, malaise, sweats. HEENT: See HPI Respiratory: Denies dyspnea, cough, wheezing, hemoptysis, sputum. Cardiovascular: Denies chest pain, palpitations, orthopnea, edema. Gastrointestinal: See HPI : Denies dysuria, frequency, incontinence, hematuria, urinary retention. Musculoskeletal: Denies weakness, joint pain or bony pain. Skin: Denies rash, skin lesions, or other. Neurologic: Denies weakness, headache, numbness, change in speech, confusion, seizures, incoordination. Psychiatric: No concerning psychosocial issues. 12-point review of systems is negative except for those stated above. Patient History <FACUNDO Villa - Last Filed: 08/08/20 22:35> Medical History Chest wall contusion (Inactive) Chronic hypertension complicating or reason for care during childbirth (Inactive) DJD (degenerative joint disease), lumbosacral (Chronic) Facet arthropathy, lumbosacral (Chronic) Foraminal stenosis of lumbosacral region (Chronic) Gestational hypertension (Inactive) Left wrist sprain (Inactive) Major depressive disorder with single episode, in full remission (04/08/17) Mild tobacco use disorder, in early remission (08/28/15) Morbid obesity with BMI of 45.0-49.9, adult (Chronic) Obesity (Chronic) depression (Resolved) Sleep apnea (Chronic) Surgical History History of microdiscectomy (Resolved 11/2015) History of third molar tooth extraction (Resolved) Status post epidural steroid injection (Resolved 03/2016) Social History Smoking Status: Current some day smoker alcohol intake: current substance use type: does not use Smoking Status: Current some day smoker alcohol intake frequency: holidays/special occasions only Exam <FACUNDO Villa - Last Filed: 08/08/20 22:35> Narrative Exam Narrative: General appearance: well developed, well nourished, in no acute distress. Head: normocephalic, atraumatic, no scalp lesions, non-tender. ENT: Bilateral auditory canals and tympanic membranes clear. Hearing grossly intact. Nose without bleeding, purulent discharge, septal hematoma or deviation. Turbinate without erythema or swelling. Mild warmth and redness to left cheek. Mucous membrane moist, about 1 cm linear lesion in left lower inner gum without drainage. Throat without erythema, tonsillar hypertrophy or exudate. Uvula in midline, airway patent. Tender to percuss tooth 19 without obvious caries or discoloration. Neck/Thyroid: neck supple, full range of motion, no visible masses or meningeal signs. No JVD, left anterior cervical lymph adenopathy. Skin: no suspicious rashes, lesions over visible areas. Warm and dry and appropriate color for ethnicity. Heart: no clubbing, no cyanosis, no edema. S1 and S2 normal. RRR w/o murmurs, clicks, or bruits. Lungs: Breathing even and unlabored. No stridor. No accessory muscles used. Able to speak in full sentences. Chest: normal shape and expansion. Abdomen: non-obese, non-distended. Neurologic: alert and oriented. Cognitive exam, [employer] and PNS grossly intact on informal exam. Psych: good eye contact, normal affect. Initial Vital Signs Initial Vital Signs: Vital Signs Temperature 97.3 F L 08/08/20 15:53 Pulse Rate 98 H 08/08/20 15:53 Respiratory Rate 16 08/08/20 15:53 Blood Pressure 164/98 H 08/08/20 15:53 Pulse Oximetry 98 08/08/20 15:53 <Meche Flores MD - Last Filed: 08/09/20 07:20> Initial Vital Signs Initial Vital Signs: Vital Signs Temperature 97.3 F L 09/23/20 15:53 Pulse Rate 98 H 08/08/20 15:53 Respiratory Rate 16 08/08/20 15:53 Blood Pressure 164/98 H 08/08/20 15:53 Pulse Oximetry 98 08/08/20 15:53 Scores <Jaxon KulkarniCastilloTitoarchie [facility] - Last Filed: 08/08/20 22:35> GCS [place] coma scale eye opening: Spontaneous [place] coma scale verbal response: Orientated [place] coma scale motor response: Obey commands [place] coma scale total score: 15 qSOFA Altered Mental Status (GCS <15): No Respiratory rate greater than/equal to 22: No Systolic blood pressure less than or equal to 100: No qSOFA Total: 0 0-1 Not High Risk 1-3 High risk Course <[facility] - Last Filed: 08/08/20 22:35> Orders Ordered: Discontinued Medications Ampicillin Sodium/Sulbactam (Sodium 3 gm/ Sodium Chloride) 100 mls @ 100 mls/hr IV NOW ONE Stop: 08/08/20 16:22 Last Infusion: 08/08/20 17:42 Dose: 0 mls/hr Documented by: Admin: 08/08/20 16:41 Dose: 100 mls/hr Documented by: KARAN Ketorolac Tromethamine (Toradol) 15 mg IV NOW ONE Stop: 08/08/20 17:24 Last Admin: 08/08/20 17:28 Dose: 15 mg Documented by: KARAN Vital Signs Vital signs: Vital Signs - 8 hr 08/08/20 15:53 08/08/20 17:44 Temperature 97.3 F L Pulse Rate 98 H 70 Respiratory Rate 16 16 Blood Pressure 164/98 H 173/97 H Pulse Oximetry 98 97 <Meche Flores MD - Last Filed: 08/09/20 07:20> Orders Ordered: Discontinued Medications Ampicillin Sodium/Sulbactam (Sodium 3 gm/ Sodium Chloride) 100 mls @ 100 mls/hr IV NOW ONE Stop: 08/08/20 16:22 Last Infusion: 08/08/20 17:42 Dose: 0 mls/hr Documented by: Admin: 08/08/20 16:41 Dose: 100 mls/hr Documented by: KARAN Ketorolac Tromethamine (Toradol) 15 mg IV NOW ONE Stop: 08/08/20 17:24 Last Admin: 08/08/20 17:28 Dose: 15 mg Documented by: KARAN Vital Signs Vital signs: Vital Signs - 8 hr 08/08/20 15:53 08/08/20 17:44 Temperature 97.3 F L Pulse Rate 98 H 70 Respiratory Rate 16 16 Blood Pressure 164/98 H 173/97 H Pulse Oximetry 98 97 MDM - Dental/Oral <FACUNDO Villa - Last Filed: 08/08/20 22:35> Differential Diagnosis Differential diagnosis: Likely gingival abscess, dental caries and dental abscess Medical Records Attestation: I reviewed the patient's medical records. Lab Data Attestation: I reviewed the patient's lab results. Result diagrams: 08/08/20 16:32 08/08/20 16:32 Labs: Lab Results 08/08/20 08/08/20 08/08/20 Range/Units 16:32 16:32 16:32 WBC 10.0 (4.5-11.0) X10^3/uL RBC 4.82 (4.0-5.2) X10^6/uL Hgb 14.6 (12.0-16.0) g/dL Hct 42.6 (36-46) % MCV 88.3 (80-100) fL MCH 30.2 (26-34) PG MCHC 34.2 (30-36) % RDW 13.1 (11.6-14.8) % Plt Count 232 (150-400) X10^3/uL Neut % (Auto) 63.7 (50-75) % Lymph % (Auto) 23.3 L (25-40) % Mckean % (Auto) 7.5 (3-14) % Eos % (Auto) 4.8 H (2-4) % Baso % (Auto) 0.7 (0-2) % Neut # (Auto) 6400 (2898-1892) /uL Lymph # (Auto) 2300 (9211-8245) /uL Mckean # (Auto) 700 (0-900) /uL Eos # (Auto) 500 H (0-450) /uL Baso # (Auto) 100 (0-100) /uL Sodium 137 (137-145) mmol/L Potassium 4.1 (3.4-5.1) mmol/L Chloride 98 (98-107) mmol/L Carbon Dioxide 34 H (22-32) mmol/L BUN 11 (7-17) mg/dL Creatinine 0.86 (0.52-1.04) mg/dL Estimated GFR > 60.0 (>60) mL/min BUN/Creatinine Ratio 12.8 (6-22) Glucose 95 (70-100) mg/dL Lactate 1.1 (0.7-2.1) mmol/L Calcium 9.6 (8.4-10.2) mg/dL MDM Narrative Medical decision making narrative: 34 year female who presents to ED with chief complain of severe pain in tooth #20 which started yesterday morning and now warmth, swelling, erythema extending to left cheek and was instructed to come to ED for IV antibiotic medication before dental procedure per [facility] dental clinic Dr. Sales. Patient has nausea and vomiting but no other constitutional symptoms. Patient is afebrile and hemodynamically stable. Patient does not appears to be septic. Patient had not tried [id number] Tylenol or Motrin but half tab of [place] last night. CBC, lactate, chemistry are unremarkable. Physical exam and lab tests are assuring without significant infection but given patient had taken dental x-rays today which was reviewed by Dr. Sales. It was decided to treat with patient with 1 dose of antibiotic medication. Patient received Unasyn 3 g IV and advised to follow up with Augmentin tonight before goes to sleep. Advised to follow up with [facility] as planned. Return precautions were discussed with patient and patient verbalized understanding in agreement with the treatment plan. <Meche Flores MD - Last Filed: 08/09/20 07:20> Lab Data Labs: Lab Results 08/08/20 08/08/20 08/08/20 Range/Units 16:32 16:32 16:32 WBC 10.0 (4.5-11.0) X10^3/uL RBC 4.82 (4.0-5.2) X10^6/uL Hgb 14.6 (12.0-16.0) g/dL Hct 42.6 (36-46) % MCV 88.3 (80-100) fL MCH 30.2 (26-34) PG MCHC 34.2 (30-36) % RDW 13.1 (11.6-14.8) % Plt Count 232 (150-400) X10^3/uL Neut % (Auto) 63.7 (50-75) % Lymph % (Auto) 23.3 L (25-40) % Mckean % (Auto) 7.5 (3-14) % Eos % (Auto) 4.8 H (2-4) % Baso % (Auto) 0.7 (0-2) % Neut # (Auto) 6400 (2154-6407) /uL Lymph # (Auto) 2300 (5829-3323) /uL Mckean # (Auto) 700 (0-900) /uL Eos # (Auto) 500 H (0-450) /uL Baso # (Auto) 100 (0-100) /uL Sodium 137 (137-145) mmol/L Potassium 4.1 (3.4-5.1) mmol/L Chloride 98 (98-107) mmol/L Carbon Dioxide 34 H (22-32) mmol/L BUN 11 (7-17) mg/dL Creatinine 0.86 (0.52-1.04) mg/dL Estimated GFR > 60.0 (>60) mL/min BUN/Creatinine Ratio 12.8 (6-22) Glucose 95 (70-100) mg/dL Lactate 1.1 (0.7-2.1) mmol/L Calcium 9.6 (8.4-10.2) mg/dL Discharge Plan Departure Patient Disposition: Home Clinical Impression: Abscess, dental Discharge Date/Time: 08/08/20 17:57 Instructions: Tooth Abscess Activity Restrictions/Additional Instructions: You have been diagnosed with [left lower to dental abscess referred by dentist for IV antibiotic medications. Blood tests are assuring. Normal white count and no lactate. Unremarkable chemistry test. You have received Unasyn 3 g IV and Toradol 15mg IV for pain]. What to do: *Take your medications as directed. Start oral antibiotic medication tonight before you go to sleep and complete the course as ordered by your dentist. You can take [id number] Tylenol and or Motrin as needed for discomfort. *Follow up with the dentist as planned, call for an appointment. Let them know you were seen in the ED and that we asked you to be seen in follow up. *Return to ED if you have any new, worsening, or concerning symptoms, such as [chest pain, breathing difficulty, unable to tolerate fluids, redness/swelling/pain spreading to face, feeling like faint, high fever or any acute concerns]. Prescriptions: No Action bupropion HCl 150 mg tablet sustained-release 12 hr 150 mg PO BID Qty: 60 RF: 5 pramipexole 0.25 mg tablet 0.25 mg PO BEDTIME Qty: 180 RF: 0 duloxetine 60 mg capsule,delayed release(DR/EC) 60 mg PO DAILY Qty: 90 RF: 0 albuterol sulfate [Proventil HFA] 90 mcg/actuation HFA aerosol inhaler 2 puff Inhalation Q4-6H Qty: 1 RF: 0 metoprolol tartrate 25 mg tablet 25 mg PO BID Qty: 60 RF: 1 norgestimate-ethinyl estradiol [Sprintec (28)] 0.25-35 mg-mcg tablet 1 tab PO DAILY Qty: 84 RF: 3 hydrocodone-acetaminophen 5-325 mg tablet 1 tab PO Q6HP PRN (Reason: pain) Qty: 90 RF: 0 trazodone 50 mg tablet 25 mg PO BEDTIME PRN (Reason: sleep) Qty: 30 RF: 0 Referrals: Mikayla Aly DO [Primary Care Provider] - <Meche Flores MD - Last Filed: 08/09/20 07:20> [facility] Juan Attestation: I was immediately available in the department for consultation throughout this patient's visit. I agree with documentation as above. Meche Flores MD
== END 2020-08-08 17:57 | disposition home or self-care (01) ==
PROVIDERS: Emergency Provider Nurse Practitioner Family; PCP Family Medicine
DX: K04.7 Periapical abscess without sinus (principal)
CPT/HCPCS: 36415; 80048; 83605; 85025; 96365; 96375; 99284; J0295; J1885

== ENCOUNTER → 2021-07-31 12:32 | Outpatient (CLI) | payer OTHER, SELFPAY ==
--- NOTE | 2021-07-31 12:33 | DI.RAD.S_ITS ---
PROCEDURE: XR KNEE RT 3V INDICATIONS: fall on right knee TECHNIQUE: Three views of the knee were acquired. COMPARISON: None. FINDINGS: Bones: No fractures or dislocations. No suspicious bony lesions. Soft tissues: No joint effusion. No suspicious soft tissue calcifications. IMPRESSION: Intact right knee. Dictated by: Malena English M.D. on 07/31/2021 at 17:47 Approved by: Malena English M.D. on 07/31/2021 at 17:47
== END ==
PROVIDERS: PCP Family Medicine; Referring Provider Nurse Practitioner Family; Visit Provider Nurse Practitioner Family
DX: S89.91XA Unspecified injury of right lower leg, initial encounter (principal); W19.XXXA Unspecified fall, initial encounter
CPT/HCPCS: 73562

== ENCOUNTER 2022-01-26 18:13 | Emergency (ER) | payer OTHER, MEDICAID, SELFPAY ==
[2022-01-26 18:43] VITALS: BP 173/100; PULSE 85; RESP 16; TEMP 36.1; O2SAT 96; BMI 47.4
--- NOTE | 2022-01-26 19:27 | ED.FEMALEGU ---
HPI - Female Genitourinary General Chief complaint: Urogenital-Female Stated complaint: pain in kidney area, nausea, vomiting, dizzy Time Seen by Provider: 01/26/22 19:25 Source: patient Mode of arrival: Ambulatory Limitations: no limitations History of Present Illness HPI Narrative: This is a 36-year-old female comes emergency department with complaint of left flank pain that is been present for about a week patient states it started to come around front. She has had some nausea and vomiting intermittently. She has had diarrhea intermittently. She has not any black or bloody stools. She states that eating and drinking seem to make it worse. Patient states it is really more on the left flank and not really on the right. Patient denies any dysuria, urgency or frequency but feels like she has less urination the normal. She also feels like her left flank pain is worse shortly after urinating. She also feels like she typically should be making more urine that she is. She does states she had irregular. She missed 1 day on her control and had 2 weeks of menses which is atypical for her. She has been taking otherwise regularly. She denies any major changes to discharge. She is sexually active. Does have a history of low back pain but states this feels different. Patient states she has a history of asthma, she is on metoprolol for hypertension and medications for anxiety and restless leg. Patient states she had small surgery on L5 in the past. Patient states that movement does not seem to make it significantly worse. She has difficulty finding a position of comfort. She will try her personal [place] or hot showers for pain. Related Data Previous Rx's Medication Instructions Recorded pramipexole 0.25 mg tablet 0.25 mg PO BEDTIME #180 tab 03/04/21 albuterol sulfate 90 mcg/actuation See Rx Instructions .ROUTE 04/10/21 aerosol inhaler .COMPLEX #8.5 gram albuterol sulfate 2.5 mg (3 mL) INHALATION Q4-6H PRN 05/14/21 #90 ml bupropion HCl 150 mg tablet,12 hr 150 mg PO BID #60 tab 10/08/21 sustained-release hydrocodone 5 mg-acetaminophen 325 1 tab PO BID PRN #60 tab 12/02/21 mg tablet metoprolol tartrate 25 mg tablet 50 mg PO BID #120 tab 12/02/21 norgestimate 0.25 mg-ethinyl 1 tab PO DAILY #84 tab 12/25/21 estradiol 35 mcg tablet (Sprintec (28)) duloxetine 60 mg capsule,delayed See Rx Instructions .ROUTE 01/06/22 release .COMPLEX #90 cap sulfamethoxazole 800 1 tab PO Q12H #20 tab 01/26/22 mg-trimethoprim 160 mg tablet (Bactrim DS) Allergies Allergy/AdvReac Type Severity Reaction Status Date / Time codeine [CODEINE] Allergy Mild HIVES Verified 12/02/21 10:33 lisinopril [LISINOPRIL] AdvReac Mild cough Verified 12/02/21 10:33 Pain Contract Allergy Unknown Uncoded 12/02/21 10:33 Review of Systems Review of Systems ROS Unobtainable: All systems reviewed & are unremarkable except as noted in HPI and below Patient History Medical History (Updated 01/26/22 @ 20:27 by Jackelin Quinones DO) Chest wall contusion Chronic hypertension complicating or reason for care during childbirth DJD (degenerative joint disease), lumbosacral Facet arthropathy, lumbosacral Foraminal stenosis of lumbosacral region Gestational hypertension Left wrist sprain Major depressive disorder with single episode, in full remission (04/08/17) Mild tobacco use disorder, in early remission (08/28/15) Morbid obesity with BMI of 45.0-49.9, adult Obesity depression Sleep apnea Surgical History History of microdiscectomy (11/2015) History of third molar tooth extraction Status post epidural steroid injection (03/2016) tobacco type: vaping alcohol intake frequency: holidays/special occasions only Substance Use Type: marijuana Exam Narrative Exam Narrative: GENERAL: Alert and oriented x three, obese female in mild distress. HEENT: Head normocephalic, atraumatic, EOMI, pupils reactive, face symmetric, moist mucous membranes NECK: Supple, full range of motion CARDIOVASCULAR: Regular rate and rhythm without murmurs, rubs or gallops. RESPIRATORY: Breath sounds equal bilaterally, no wheezes rales or rhonchi. ABDOMEN: Soft, mild left upper quadrant tenderness. Normoactive bowel sounds all 4 quadrants. No guarding or rebound, rigidity, no mass : Positive for left CVA tenderness, no right CVA tenderness. BACK: No cervical, thoracic or lumbar vertebral point tenderness. Patient has normal range of motion. Patient's gait is normal. Muscle strength is 5/5 in lower extremities, Sensation is intact in the lower extremities. Cap refill less than 2 seconds bilateral lower extremities. EXTREMITIES: Normal range of motion, no clubbing or edema. Neurovascularly intact NEUROLOGICAL: Cranial nerves II through XII grossly intact. Moving all extremities SKIN: Warm, dry, no petechiae, no rashes or lesions. Initial Vital Signs Initial Vital Signs: Vital Signs Temperature 97.0 F L 01/26/22 18:43 Pulse Rate 85 01/26/22 18:43 Respiratory Rate 16 01/26/22 18:43 Blood Pressure 173/100 H 01/26/22 18:43 Pulse Oximetry 96 01/26/22 18:43 Course Orders Ordered: ED Orders 01/26/22 19:23 Test Urine Stat Urine Microscopic Stat 01/26/22 19:33 CBC Auto Diff [Complete Blood Count AUTO DIFF] Stat CMP [Comprehensive Metabolic Panel] Stat Lipase Stat 01/26/22 19:45 CT kidney ureter bladder (KUB) Stat Discontinued Medications Sodium Chloride (Normal Saline 0.9%) 1,000 mls @ 1,000 mls/hr IV BOLUS ONE Stop: 01/26/22 20:25 Last Infusion: 01/26/22 21:05 Dose: 0 mls/hr Documented by: Admin: 01/26/22 19:39 Dose: 1,000 mls/hr Documented by: XAVIER Ketorolac Tromethamine (Ketorolac 30 Mg/Ml Vial) 15 mg IV NOW ONE Stop: 01/26/22 19:27 Last Admin: 01/26/22 19:39 Dose: 15 mg Documented by: XAVIER Ondansetron HCl (Ondansetron 4 Mg Odt Prepack) 1 bottle MISC SEEINSTR ONE Stop: 01/26/22 20:58 Last Admin: 01/26/22 21:05 Dose: 1 bottle Documented by: XAVIER Oxycodone/Acetaminophen (Oxycodone/Apap 5/325 Prepack) 1 bottle MISC SEEINSTR ONE Stop: 01/26/22 20:58 Last Admin: 01/26/22 21:05 Dose: 1 bottle Documented by: XAVIER Trimethoprim/Sulfamethoxazole (Trimeth/Sulfa 160/800 (Ds) Tablet) 1 tab PO NOW ONE Stop: 01/26/22 20:58 Last Admin: 01/26/22 21:05 Dose: 1 tab Documented by: XAVIER Reevaluation(s) Reevaluation #1: Patient felt better but pain still present. Time: 21:00 Vital Signs Vital signs: Vital Signs - 8 hr 01/26/22 21:08 Pulse Rate 77 Blood Pressure 172/98 H Pulse Oximetry 97 MDM - Female Genitourinary Lab Data Result diagrams: 01/26/22 19:33 01/26/22 19:33 Labs: Lab Results 01/26/22 01/26/22 01/26/22 Range/Units 19:23 19:23 19:33 WBC 6.5 (4.5-11.0) X10^3/uL RBC 4.53 (4.0-5.2) X10^6/uL Hgb 13.6 (12.0-16.0) g/dL Hct 40.0 (36-46) % MCV 88.2 (80-100) fL MCH 30.1 (26-34) PG MCHC 34.1 (30-36) % RDW 12.8 (11.6-14.8) % Plt Count 200 (150-400) X10^3/uL Neut % (Auto) 57.0 (50-75) % Lymph % (Auto) 28.0 (25-40) % Kinney % (Auto) 6.9 (3-14) % Eos % (Auto) 5.8 H (2-4) % Baso % (Auto) 2.3 H (0-2) % Neut # (Auto) 3700 (7446-1444) /uL Lymph # (Auto) 1800 (6772-8729) /uL Kinney # (Auto) 400 (0-900) /uL Eos # (Auto) 400 (0-450) /uL Baso # (Auto) 200 H (0-100) /uL Sodium (137-145) mmol/L Potassium (3.4-5.1) mmol/L Chloride (98-107) mmol/L Carbon Dioxide (22-32) mmol/L BUN (7-17) mg/dL Creatinine (0.52-1.04) mg/dL Estimated GFR (>60) mL/min BUN/Creatinine Ratio (6-22) Glucose (70-100) mg/dL Calcium (8.4-10.2) mg/dL Total Bilirubin (0.2-1.3) mg/dL AST (14-36) IU/L ALT (<35) IU/L Alkaline Phosphatase (38-126) U/L Total Protein (6.3-8.2) g/dL Albumin (3.5-5.0) g/dL Globulin (1.7-4.1) g/dL Albumin/Globulin Ratio (1.0-2.8) Lipase (23-300) U/L Urine RBC 1-5/hpf D (0-5/HPF) Urine WBC 0-1/hpf (0-5/HPF) Ur Squamous Epith Cells 10-30 /hpf H D (0-5/HPF) Amorphous Sediment 1+ Urine Bacteria Moderate (10-30) H (None) Ur Culture Indicated? Cult not indicated Urine Test Negative (Negative) 01/26/22 Range/Units 19:33 WBC (4.5-11.0) X10^3/uL RBC (4.0-5.2) X10^6/uL Hgb (12.0-16.0) g/dL Hct (36-46) % MCV (80-100) fL MCH (26-34) PG MCHC (30-36) % RDW (11.6-14.8) % Plt Count (150-400) X10^3/uL Neut % (Auto) (50-75) % Lymph % (Auto) (25-40) % Kinney % (Auto) (3-14) % Eos % (Auto) (2-4) % Baso % (Auto) (0-2) % Neut # (Auto) (3115-0254) /uL Lymph # (Auto) (3517-2056) /uL Kinney # (Auto) (0-900) /uL Eos # (Auto) (0-450) /uL Baso # (Auto) (0-100) /uL Sodium 136 L (137-145) mmol/L Potassium 4.1 (3.4-5.1) mmol/L Chloride 101 (98-107) mmol/L Carbon Dioxide 30 (22-32) mmol/L BUN 11 (7-17) mg/dL Creatinine 0.76 (0.52-1.04) mg/dL Estimated GFR > 60.0 (>60) mL/min BUN/Creatinine Ratio 14.5 (6-22) Glucose 93 (70-100) mg/dL Calcium 9.1 (8.4-10.2) mg/dL Total Bilirubin 0.4 (0.2-1.3) mg/dL AST 24 (14-36) IU/L ALT 22 (<35) IU/L Alkaline Phosphatase 94 (38-126) U/L Total Protein 7.7 (6.3-8.2) g/dL Albumin 4.1 (3.5-5.0) g/dL Globulin 3.6 (1.7-4.1) g/dL Albumin/Globulin Ratio 1.1 (1.0-2.8) Lipase 49 (23-300) U/L Urine RBC (0-5/HPF) Urine WBC (0-5/HPF) Ur Squamous Epith Cells (0-5/HPF) Amorphous Sediment Urine Bacteria (None) Ur Culture Indicated? Urine Test (Negative) Urine Dip Bedside Urine Glucose Negative Bedside Urine Bilirubin - Negative Bedside Urine Ketone - Negative Urine Specific Severance 1.02 Bedside Urine Occult Blood ++ Bedside Urine pH 6.0 Bedside Urine Protein - Negative Bedside Urine Urobilinogen - Negative Bedside Urine Nitrite - Negative Bedside Urine Leukocytes - Negative Esterase Imaging Data CT scan - abdomen/pelvis: Radiologist's Impression: [place] [address] CT Scan Report Signed Patient: Susana Smalls MR#: [id number] : 1985 Acct:[id number] Age/Sex: 36 / F Date of Service: 01/26/22 Loc: ED Accession Number: [id number] ?? Procedure: CT kidney ureter bladder (KUB) Ordering Provider: Jackelin Quinones D.O. PROCEDURE:? CT KIDNEY URETER BLADDER (KUB) ? INDICATIONS:? left flank pain x 1 week, hematuria, n/v ? TECHNIQUE:? Axial sections were acquired from the lung bases to the pubic symphysis.? Coronal and sagittal reformats were performed.? For radiation dose reduction, the following was used: ?automated exposure control, adjustment of mA and/or kV according to patient size.? ? COMPARISON:? None. ? FINDINGS:? Image quality:? Excellent.? ? Lung bases:? Unremarkable.? ? Heart:? No significant findings. ? URINARY: Right Kidney: ? No stones or hydronephrosis.? Right Ureter:? No hydroureter.? ? Left Kidney: ? No stones or hydronephrosis. Left Ureter:? No hydroureter.? ? Bladder:? Normal wall thickness. No stones. ? ? ? ABDOMEN: Liver:? Unremarkable.? ? Gallbladder:? Multiple calcified gallstones.? ? Biliary ducts:? Unremarkable.? ? Pancreas:? Unremarkable.? ? Spleen:? Unremarkable.? ? Adrenal Glands:? Unremarkable.? ? ? Stomach and Bowel:? Stomach, small bowel loops, and colon are unremarkable.? The appendix is within normal limits. Peritoneum:? No abnormal intraperitoneal fluid.? No free air.? ? Ventral Wall: ? Small fat containing umbilical hernia. Abdominal Nodes:? No enlarged retroperitoneal or mesenteric lymph nodes.? Vessels:? Aorta and inferior vena cava are normal in size.? ? PELVIS: Pelvic Organs:? 3.2 centimeter right adnexal region cyst. Pelvic Nodes: Unremarkable. Miscellaneous: No inguinal hernias are seen. ? ? ? Bones:? Spine degenerative disc disease and facet arthropathy. ? IMPRESSION:? ? 1. No renal stone or hydronephrosis. ? 2. No free fluid or free air. ? 3. No dilated loops of bowel. ? 4. Appendix is normal.? ? 5. Cholelithiasis.? ? ? Dictated by: Halle Coles MD, PhD on 01/26/2022 at 20:08 ? ? Approved by: Halle Coles MD, PhD on 01/26/2022 at 20:11?? [facility] Narrative Medical decision making narrative: This is a 36-year-old female who comes in with left flank pain for the past week, some nausea and vomiting but afebrile. Patient's urine shows hematuria but no other clear signs of infection. She has a negative KUB except from billable hernia that is fat containing and unlikely cause of her pain. Her labs are reassuring. is negative. Patient had some improvement with Toradol but not resolution. Discussed with patient possible pyelonephritis she would prefer to start antibiotics rather than wait for culture. She still has some pain so was given a prepack of Zofran and pain medication for this evening. Discussed that pelvic exam would be appropriate. Patient is sexually active but she defers. Patient was encouraged to return if she has persistent or worsening symptoms particularly after starting antibiotics. Discharge Plan Departure Patient Disposition: Home Clinical Impression: Flank pain Instructions: DI for Kidney Infection Activity Restrictions/Additional Instructions: Your imaging today shows a small fat containing umbilical hernia. I do not believe this is the cause of your pain today. You may take Zofran 1 tablet every 6 hours as needed for nausea. You may take pain medication as prescribed. This medication can make you sleepy do not drive, perform hazardous activities or make any major decisions while taking it. This medication will make you constipated please take a stool softener once to twice daily until stools are soft and regular. Prescription for antibiotics sent to [facility] in [place]. Please return for fevers, worsening abdominal, back flank pain, persistent vomiting, black or bloody stools, passing out, chest pain or shortness of breath or other new or concerning symptoms. Prescriptions: New sulfamethoxazole-trimethoprim [Bactrim DS] 800-160 mg tablet 1 tab PO Q12H Qty: 20 0RF No Action pramipexole 0.25 mg tablet 0.25 mg PO BEDTIME Qty: 180 0RF albuterol sulfate 90 mcg/actuation HFA aerosol inhaler See Rx Instructions .ROUTE .COMPLEX Qty: 8.5 3RF Dose Instruction: INHALE 2 PUFFS BY MOUTH EVERY FOUR TO SIX HOURS Rx Instructions: INHALE 2 PUFFS BY MOUTH EVERY FOUR TO SIX HOURS albuterol sulfate 2.5 mg /3 mL (0.083 %) solution for nebulization 2.5 mg inhalation Q4-6H PRN (Reason: shortness of breath or wheezing) Qty: 90 1RF bupropion HCl 150 mg tablet sustained-release 12 hr 150 mg PO BID Qty: 60 5RF norgestimate-ethinyl estradiol [Sprintec (28)] 0.25-35 mg-mcg tablet 1 tab PO DAILY Qty: 84 3RF duloxetine 60 mg capsule,delayed release(DR/EC) See Rx Instructions .ROUTE .COMPLEX Qty: 90 0RF Dose Instruction: TAKE ONE CAPSULE BY MOUTH ONE TIME DAILY Rx Instructions: TAKE ONE CAPSULE BY MOUTH ONE TIME DAILY metoprolol tartrate 25 mg tablet 50 mg PO BID Qty: 120 5RF hydrocodone-acetaminophen 5-325 mg tablet 1 tab PO BID PRN (Reason: pain) Qty: 60 0RF Rx Instructions: EXEmpt Referrals: Cydney Castaneda MD [Primary Care Provider] -
[2022-01-26 19:36] LABS: Amorphous Sediment Urine 1+; Bacteria Urine Moderate (10-30); Culture Indicated Urine Cult Not Indicated; RBC Urine 1-5/HPF (0-5/HPF); Squamous Epithelial Cell Urine 10-30 /HPF (0-5/HPF); WBC Urine 0-1/HPF (0-5/HPF)
[2022-01-26] MEDS: KETOROLAC 30 MG/ML VIAL 15 MG IV (19:39)
[2022-01-26] MEDS: SODIUM CHLORIDE 0.9% 1,000 ML 1000 ML IV (19:39)
[2022-01-26 19:43] LABS: Add Manual Diff / Slide Review NO; Basophils Absolute Auto 200 /uL (0-100); Basophils Percent Auto 2.3 % (0-2); Eosinophils Absolute Auto 400 /uL (0-450); Eosinophils Percent Auto 5.8 % (2-4); Hemoglobin 13.6 g/dL (12.0-16.0); Lymphocytes Absolute Auto 1800 /uL (1100-4500); Mean Corpuscular HGB Conc 34.1 % (30-36); Mean Corpuscular Hemoglobin 30.1 PG (26-34); Mean Corpuscular Volume 88.2 fL (80-100); Monocytes Absolute Auto 400 /uL (0-900); Monocytes Percent Auto 6.9 % (3-14); Neutrophils Absolute Auto 3700 /uL (1500-7000); Platelet Count 200 X10^3/uL (150-400); Red Blood Cell Count 4.53 X10^6/uL (4.0-5.2); Red Cell Distribution Width 12.8 % (11.6-14.8); White Blood Cell Count 6.5 X10^3/uL (4.5-11.0)
--- NOTE | 2022-01-26 19:45 | DI.CT.S_ITS ---
PROCEDURE: CT KIDNEY URETER BLADDER (KUB) INDICATIONS: left flank pain x 1 week, hematuria, n/v TECHNIQUE: Axial sections were acquired from the lung bases to the pubic symphysis. Coronal and sagittal reformats were performed. For radiation dose reduction, the following was used: automated exposure control, adjustment of mA and/or kV according to patient size. COMPARISON: None. FINDINGS: Image quality: Excellent. Lung bases: Unremarkable. Heart: No significant findings. URINARY: Right Kidney: No stones or hydronephrosis. Right Ureter: No hydroureter. Left Kidney: No stones or hydronephrosis. Left Ureter: No hydroureter. Bladder: Normal wall thickness. No stones. ABDOMEN: Liver: Unremarkable. Gallbladder: Multiple calcified gallstones. Biliary ducts: Unremarkable. Pancreas: Unremarkable. Spleen: Unremarkable. Adrenal Glands: Unremarkable. Stomach and Bowel: Stomach, small bowel loops, and colon are unremarkable. The appendix is within normal limits. Peritoneum: No abnormal intraperitoneal fluid. No free air. Ventral Wall: Small fat containing umbilical hernia. Abdominal Nodes: No enlarged retroperitoneal or mesenteric lymph nodes. Vessels: Aorta and inferior vena cava are normal in size. PELVIS: Pelvic Organs: 3.2 centimeter right adnexal region cyst. Pelvic Nodes: Unremarkable. Miscellaneous: No inguinal hernias are seen. Bones: Spine degenerative disc disease and facet arthropathy. IMPRESSION: 1. No renal stone or hydronephrosis. 2. No free fluid or free air. 3. No dilated loops of bowel. 4. Appendix is normal. 5. Cholelithiasis. Dictated by: Halle Coles MD, PhD on 01/26/2022 at 20:08 Approved by: Halle Coles MD, PhD on 01/26/2022 at 20:11
[2022-01-26 19:53] LABS: Alanine Aminotransferase 22 IU/L (<35); Albumin 4.1 g/dL (3.5-5.0); Albumin Globulin Ratio 1.1 (1.0-2.8); Alkaline Phosphatase 94 U/L (38-126); Aspartate Aminotransferase 24 IU/L (14-36); BUN Creatinine Ratio 14.5 (6-22); Bilirubin Total 0.4 mg/dL (0.2-1.3); Blood Urea Nitrogen 11 mg/dL (7-17); Calcium 9.1 mg/dL (8.4-10.2); Carbon Dioxide 30 mmol/L (22-32); Chloride 101 mmol/L (98-107); Estimated Glomerular Filt Rate > 60.0 mL/min (>60); Globulin 3.6 g/dL (1.7-4.1); Glucose 93 mg/dL (70-100); HEMOLYSIS < 15 (0-50); Lipase 49 U/L (23-300); Potassium 4.1 mmol/L (3.4-5.1); Sodium 136 mmol/L (137-145); Total Protein 7.7 g/dL (6.3-8.2)
[2022-01-26 20:37] LABS: Pregnancy Test Urine Negative (Negative)
[2022-01-26] MEDS: OXYCODONE/APAP 5/325 PREPACK 1 BOTTLE MISC (21:05)
[2022-01-26] MEDS: TRIMETH/SULFA 160/800 (DS) TABLET 1 TAB PO (21:05)
[2022-01-26] MEDS: ONDANSETRON 4 MG ODT PREPACK 1 BOTTLE MISC (21:05)
[2022-01-26 21:08] VITALS: BP 172/98; PULSE 77; O2SAT 97
== END 2022-01-26 21:15 | disposition home or self-care (01) ==
PROVIDERS: Emergency Provider Emergency Medicine; PCP Family Medicine
DX: R10.9 Unspecified abdominal pain (principal); R11.2 Nausea with vomiting, unspecified
CPT/HCPCS: 36415; 74176; 80053; 81003; 81015; 81025; 83690; 85025; 96361; 96374; 99284; J1885

== ENCOUNTER → 2022-04-11 11:52 | Outpatient (CLI) | payer OTHER, MEDICAID, SELFPAY ==
[2022-04-11 13:18] LABS: Add Manual Diff / Slide Review NO; Basophils Absolute Auto 100 /uL (0-100); Basophils Percent Auto 0.9 % (0-2); Eosinophils Absolute Auto 800 /uL (0-450); Eosinophils Percent Auto 10.7 % (2-4); Hematocrit 42.6 % (36-46); Hemoglobin 14.6 g/dL (12.0-16.0); Lymphocytes Absolute Auto 2100 /uL (1100-4500); Lymphocytes Percent Auto 28.5 % (25-40); Mean Corpuscular HGB Conc 34.3 % (30-36); Mean Corpuscular Hemoglobin 30.5 PG (26-34); Monocytes Absolute Auto 500 /uL (0-900); Neutrophils Absolute Auto 4100 /uL (1500-7000); Neutrophils Percent Auto 53.9 % (50-75); Platelet Count 243 X10^3/uL (150-400); Red Blood Cell Count 4.79 X10^6/uL (4.0-5.2); Red Cell Distribution Width 13.3 % (11.6-14.8); White Blood Cell Count 7.5 X10^3/uL (4.5-11.0)
[2022-04-11 13:58] LABS: Alanine Aminotransferase 23 IU/L (<35); Albumin 4.2 g/dL (3.5-5.0); Albumin Globulin Ratio 1.2 (1.0-2.8); Alkaline Phosphatase 105 U/L (38-126); Aspartate Aminotransferase 30 IU/L (14-36); BUN Creatinine Ratio 15.2 (6-22); Bilirubin Total 0.5 mg/dL (0.2-1.3); Blood Urea Nitrogen 12 mg/dL (7-17); Calcium 9.2 mg/dL (8.4-10.2); Carbon Dioxide 33 mmol/L (22-32); Chloride 102 mmol/L (98-107); Cholesterol 178 mg/dL (140-199); Estimated Glomerular Filt Rate > 60 mL/min (>60); Globulin 3.5 g/dL (1.7-4.1); Glucose 85 mg/dL (70-100); HDL Cholesterol 68 mg/dL (40-60); HEMOLYSIS < 15 (0-50); LDL Cholesterol Calculated 74 mg/dL (<100); Potassium 4.2 mmol/L (3.4-5.1); Sodium 138 mmol/L (137-145); Total Protein 7.7 g/dL (6.3-8.2); Triglycerides 181 mg/dL (35-150)
[2022-04-11 14:34] LABS: Creatinine Urine Random 276.8 mg/dL
[2022-04-11 14:36] LABS: Microalbumi Creatinin Ratio Ur 25.6 ug/mg CR (<30); Microalbumin Urine Random 7.1 mg/dL (0-1.6)
[2022-04-11 15:06] LABS: TSH w/ Reflex to FT4 0.94 uIU/mL (0.47-4.68)
== END ==
PROVIDERS: Family Medicine; PCP Family Medicine; Referring Provider Family Medicine; Visit Provider Family Medicine
DX: E66.01 Morbid (severe) obesity due to excess calories (principal); F41.9 Anxiety disorder, unspecified; I10 Essential (primary) hypertension; R53.83 Other fatigue; Z68.42 Body mass index [BMI] 45.0-49.9, adult
CPT/HCPCS: 80053; 80061; 82043; 82570; 83036; 84443; 85025

== ENCOUNTER → 2022-04-29 09:42 | Outpatient (CLI) | payer OTHER, MEDICAID, SELFPAY ==
[2022-04-29 13:18] LABS: Urine N gonorrhoeae NOT DETECTED
[2022-04-29 13:52] LABS: Urine Chlamydia NOT DETECTED
[2022-05-13 12:54] LABS: HIV-1 RNA by PCR <20
== END ==
PROVIDERS: PCP Pediatrics; Referring Provider Pediatrics; Visit Provider Pediatrics
DX: Z20.2 Contact with and (suspected) exposure to infections with a predominantly sexual mode of transmission (principal)
CPT/HCPCS: 36415; 86694; 87491; 87536; 87591

== ENCOUNTER → 2022-06-03 11:43 | Outpatient (CLI) | payer OTHER, MEDICAID, SELFPAY ==
[2022-06-04 21:33] LABS: HSV I/II IgM <0.91 Ratio (0.00-0.90)
== END ==
PROVIDERS: PCP Pediatrics; Referring Provider Pediatrics; Visit Provider Pediatrics
DX: A64 Unspecified sexually transmitted disease (principal)
CPT/HCPCS: 36415; 86694

== ENCOUNTER 2022-12-19 13:34 | Observation (INO) | payer OTHER, MEDICAID, SELFPAY ==
[2022-12-19] VITALS (18 sets, daily range): BP systolic 140–199; BP diastolic 64–109; PULSE 62–101; RESP 16–24; TEMP 36.7–37; O2SAT 95–100; BMI 41.5
--- NOTE | 2022-12-19 13:54 | DI.US.S_ITS ---
PROCEDURE: US ABDOMEN LIMITED INDICATIONS: RUQ tenderness w/vomiting TECHNIQUE: Real-time focused scanning was performed of the abdomen, with image documentation. COMPARISON: CT, CT KIDNEY URETER BLADDER (KUB), 01/26/2022, 19:54. FINDINGS: Liver is enlarged measuring 20.6 cm with steatosis. There is a focus of increased echogenicity within the left lobe measuring 1.1 cm. Gallbladder demonstrates multiple mobile areas of increased echogenicity. Wall thickness is prominent measuring 12 mm. Common bile duct measures 6 mm. IMPRESSION: Cholelithiasis with wall thickening most suggestive of cholecystitis. Focal area of increased echogenicity within the liver most suggestive of hemangioma. Dictated by: Valeira Boyle M.D. on 12/19/2022 at 15:19 Approved by: Valeria Boyle M.D. on 12/19/2022 at 15:21
--- NOTE | 2022-12-19 13:56 | ED.NAVMDI ---
HPI - Nausea/Vomiting/Diarrhea <Patricia Clarke [facility] - Last Filed: 12/19/22 17:27> General Chief complaint: Urogenital-Female Stated complaint: thinks kidney infection throwing up since 2am Time Seen by Provider: 12/19/22 13:48 Source: patient Mode of arrival: Wheelchair History of Present Illness HPI Narrative: This is a 29-year-old female presents to the emergency department with vomiting, states that she is been vomiting since 02:00, complains of right upper quadrant pain, states that she is on her menses and having blood in her urine but she feels like it could be a kidney stone. She states that she has right flank pain but also has left flank pain. States that she does not feel well, typically when she feels this way she can get in a hot shower. She denies history of cyclic vomiting syndrome secondary to cannabis use. She has a history of obesity, anxiety, depression, asthma and hypertension. She takes control pills and metoprolol for hypertension. Patient is on duloxetine, and Wellbutrin for mood. Patient states that she did not take her 50 mg of metoprolol this morning due to her vomiting Related Data Previous Rx's Medication Instructions Recorded albuterol sulfate 2.5 mg/3 mL 2.5 mg (3 mL) inhalation Q4-6H PRN 05/14/21 (0.083 %) solution for nebulization shortness of breath or wheezing #90 mL norgestimate 0.25 mg-ethinyl 1 tab PO DAILY #84 tabs 12/25/21 estradiol 35 mcg tablet (Sprintec (28)) bupropion HCl 150 mg tablet,12 hr 150 mg PO BID #180 tabs 06/09/22 sustained-release metoprolol tartrate 50 mg tablet 50 mg PO BID #180 tabs 07/11/22 duloxetine 60 mg capsule,delayed 60 mg PO DAILY #90 caps 08/12/22 release albuterol sulfate 90 mcg/actuation See Rx Instructions .Route 10/07/22 aerosol inhaler .COMPLEX #8.5 grams hydrocodone 5 mg-acetaminophen 325 1 tab PO BID PRN pain #60 tabs 10/07/22 mg tablet pramipexole 0.25 mg tablet 0.5 mg .Route BEDTIME PRN restless 10/07/22 leg #180 tabs Allergies Allergy/AdvReac Type Severity Reaction Status Date / Time codeine [CODEINE] Allergy Mild HIVES Verified 12/19/22 13:43 lisinopril [LISINOPRIL] AdvReac Mild cough Verified 12/19/22 13:43 Review of Systems <FACUNDO Leonard - Last Filed: 12/19/22 17:27> Review of Systems ROS Unobtainable: All systems reviewed & are unremarkable except as noted in HPI and below Patient History <FACUNDO Leonard - Last Filed: 12/19/22 17:27> Medical History Chest wall contusion Chronic diarrhea Chronic hypertension complicating or reason for care during childbirth DJD (degenerative joint disease), lumbosacral Facet arthropathy, lumbosacral Foraminal stenosis of lumbosacral region Gestational hypertension Left wrist sprain Major depressive disorder with single episode, in full remission (04/08/17) Mild tobacco use disorder, in early remission (08/28/15) Morbid obesity with BMI of 45.0-49.9, adult Obesity depression Sleep apnea Surgical History History of microdiscectomy (11/2015) History of third molar tooth extraction Status post epidural steroid injection (03/2016) Social History Smoking Status: Current some day smoker Tobacco: How many years used: 20 alcohol intake: current (rarely ) substance use type: marijuana (daily ) Smoking Status: Current some day smoker tobacco type: vaping alcohol intake frequency: holidays/special occasions only Substance Use Type: marijuana Exam <FACUNDO Leonard - Last Filed: 12/19/22 17:27> Narrative Exam Narrative: Reviewed vitals signs and nursing notes. General: cooperative, comfortable, appears in pain distress, well groomed HEENT: symmetrical facial expressions, moist mucous membranes Cardiovascular: regular rate and rhythm, no peripheral edema, warm extremities Respiratory: normal effort, able to speak in complete sentences, without wheezing, stridor, or abnormal breath sounds. No retractions or tachypnea. GI: abdomen soft, obese, tender to palpation in the right upper quadrant with deep inspiration, right CVA tenderness, left CVA tenderness but less than the right, patient holding emesis bag and having intermittent dry heaves, abdomen is without masses or rebound tenderness. No tenderness over lower quadrants or pelvis with palpation MSK: moves all extremities, neurovascularly intact, no weakness, normal tone Skin: brisk capillary refill, without pallor or erythema Neuro: normal speech and cognition, A&O x3, ambulatory, clear speech Psych: mental status is grossly normal, congruent mood, normal affect, pleasant and cooperative Initial Vital Signs Initial Vital Signs: Vital Signs Temperature 98.1 F 12/19/22 13:38 Pulse Rate 71 12/19/22 13:38 Respiratory Rate 24 12/19/22 13:38 Blood Pressure 182/104 H 12/19/22 13:38 Pulse Oximetry 97 12/19/22 13:38 Oxygen Delivery Method 12/19/22 13:38 <Jesus Lockett DO - Last Filed: 12/19/22 17:30> Initial Vital Signs Initial Vital Signs: Vital Signs Temperature 98.1 F 12/19/22 13:38 Pulse Rate 71 12/19/22 13:38 Respiratory Rate 24 12/19/22 13:38 Blood Pressure 182/104 H 12/19/22 13:38 Pulse Oximetry 97 12/19/22 13:38 Oxygen Delivery Method 12/19/22 13:38 Course <FACUNDO Leonard - Last Filed: 12/19/22 17:27> Orders Ordered: ED Orders 12/19/22 13:45 Ictotest Urine Stat Test Urine Stat Urinalysis and Microscopic Stat Urine Culture Stat 12/19/22 13:54 US abdomen limited Stat 12/19/22 14:10 CBC Auto Diff [Complete Blood Count AUTO DIFF] Stat CMP [Comprehensive Metabolic Panel] Stat CRP [C-Reactive Protein Quant] Stat Lipase Stat Procalcitonin Stat Troponin & CK Cardiac Panel Stat 12/19/22 14:29 CT abdomen pelvis w con Stat 12/19/22 17:22 COVID19 -Nasal RAPID/Pre-Proc Stat Ondansetron HCl (Ondansetron 4 Mg/2 Ml Inj) 4 mg IV NOW PRN PRN Reason: Nausea And Vomiting Last Admin: 12/19/22 17:18 Dose: 4 mg Documented By: Admin: 12/19/22 14:09 Dose: 4 mg Documented By: MARTIN Ondansetron HCl (Ondansetron 4 Mg Odt) 4 mg SL NOW PRN PRN Reason: Nausea And Vomiting Discontinued Medications Diphenhydramine HCl (Diphenhydramine 50 Mg/Ml Vial) 25 mg IV NOW ONE Stop: 12/19/22 15:02 Last Admin: 12/19/22 15:51 Dose: 25 mg Documented By: MARTIN Hydromorphone HCl (Hydromorphone 0.5 Mg Inj) 0.5 mg IV NOW ONE Stop: 12/19/22 13:55 Last Admin: 12/19/22 14:02 Dose: 0.5 mg Documented By: ANDREE Hydromorphone HCl (Hydromorphone 0.5 Mg Inj) 0.5 mg IV NOW ONE Stop: 12/19/22 15:57 Last Admin: 12/19/22 16:27 Dose: 0.5 mg Documented By: MARTIN Sodium Chloride (Normal Saline 0.9%) 1,000 mls @ 1,000 mls/hr IV BOLUS ONE Stop: 12/19/22 14:53 Last Infusion: 12/19/22 16:20 Dose: 0 mls/hr Documented By: Admin: 12/19/22 14:02 Dose: 1,000 mls/hr Documented By: ANDREE Ampicillin Sodium/Sulbactam (Sodium 3 gm/ Sodium Chloride) 100 mls @ 200 mls/hr IV NOW ONE Stop: 12/19/22 16:00 Last Infusion: 12/19/22 17:14 Dose: 0 mls/hr Documented By: Admin: 12/19/22 16:27 Dose: 200 mls/hr Documented By: MARTIN Ketorolac Tromethamine (Ketorolac 30 Mg/Ml Vial) 15 mg IV NOW ONE Stop: 12/19/22 13:55 Last Admin: 12/19/22 14:01 Dose: 15 mg Documented By: ANDREE Metoclopramide HCl (Metoclopramide 10 Mg/2 Ml Inj) 10 mg IV NOW ONE Stop: 12/19/22 15:02 Last Admin: 12/19/22 15:51 Dose: 10 mg Documented By: MARTIN Metoprolol Succinate (Metoprolol Er 25 Mg Tablet) 25 mg PO NOW ONE Stop: 12/19/22 15:02 Last Admin: 12/19/22 15:50 Dose: Not Given Documented By: MARTIN Ondansetron HCl (Ondansetron 4 Mg Odt) 4 mg SL NOW ONE Stop: 12/19/22 13:50 Last Admin: 12/19/22 13:58 Dose: 4 mg Documented By: ANDREE Vital Signs Vital signs: Vital Signs - 8 hr 12/19/22 13:38 12/19/22 13:40 12/19/22 13:41 Temperature 98.1 F Pulse Rate 71 81 Respiratory Rate 24 Blood Pressure 182/104 H 185/109 H Pulse Oximetry 97 98 Oxygen Delivery Method Room Air 12/19/22 13:42 12/19/22 14:09 12/19/22 14:11 Temperature Pulse Rate 72 66 Respiratory Rate Blood Pressure 182/104 H Pulse Oximetry 99 99 Oxygen Delivery Method 12/19/22 14:11 12/19/22 14:20 12/19/22 14:20 Temperature Pulse Rate 62 Respiratory Rate Blood Pressure 199/95 H 170/85 H Pulse Oximetry 98 Oxygen Delivery Method 12/19/22 14:30 12/19/22 14:30 12/19/22 15:00 Temperature Pulse Rate 71 74 Respiratory Rate Blood Pressure 157/77 H Pulse Oximetry 95 99 Oxygen Delivery Method 12/19/22 15:01 12/19/22 15:01 12/19/22 15:45 Temperature Pulse Rate 76 72 Respiratory Rate Blood Pressure 141/68 H Pulse Oximetry 98 100 Oxygen Delivery Method 12/19/22 15:50 12/19/22 15:50 12/19/22 16:00 Temperature Pulse Rate 74 75 Respiratory Rate Blood Pressure 142/77 H Pulse Oximetry 100 99 Oxygen Delivery Method 12/19/22 16:35 12/19/22 16:36 12/19/22 16:36 Temperature Pulse Rate 92 H 84 Respiratory Rate Blood Pressure 140/88 Pulse Oximetry 97 99 Oxygen Delivery Method 12/19/22 17:00 Temperature Pulse Rate 101 H Respiratory Rate Blood Pressure Pulse Oximetry 96 Oxygen Delivery Method <Jesus Lockett DO - Last Filed: 12/19/22 17:30> Orders Ordered: ED Orders 12/19/22 13:45 Ictotest Urine Stat Test Urine Stat Urinalysis and Microscopic Stat Urine Culture Stat 12/19/22 13:54 US abdomen limited Stat 12/19/22 14:10 CBC Auto Diff [Complete Blood Count AUTO DIFF] Stat CMP [Comprehensive Metabolic Panel] Stat CRP [C-Reactive Protein Quant] Stat Lipase Stat Procalcitonin Stat Troponin & CK Cardiac Panel Stat 12/19/22 14:29 CT abdomen pelvis w con Stat 12/19/22 17:22 COVID19 -Nasal RAPID/Pre-Proc Stat Ondansetron HCl (Ondansetron 4 Mg/2 Ml Inj) 4 mg IV NOW PRN PRN Reason: Nausea And Vomiting Last Admin: 12/19/22 17:18 Dose: 4 mg Documented By: Admin: 12/19/22 14:09 Dose: 4 mg Documented By: MARTIN Ondansetron HCl (Ondansetron 4 Mg Odt) 4 mg SL NOW PRN PRN Reason: Nausea And Vomiting Discontinued Medications Diphenhydramine HCl (Diphenhydramine 50 Mg/Ml Vial) 25 mg IV NOW ONE Stop: 12/19/22 15:02 Last Admin: 12/19/22 15:51 Dose: 25 mg Documented By: MARTIN Hydromorphone HCl (Hydromorphone 0.5 Mg Inj) 0.5 mg IV NOW ONE Stop: 12/19/22 13:55 Last Admin: 12/19/22 14:02 Dose: 0.5 mg Documented By: ANDREE Hydromorphone HCl (Hydromorphone 0.5 Mg Inj) 0.5 mg IV NOW ONE Stop: 12/19/22 15:57 Last Admin: 12/19/22 16:27 Dose: 0.5 mg Documented By: MARTIN Sodium Chloride (Normal Saline 0.9%) 1,000 mls @ 1,000 mls/hr IV BOLUS ONE Stop: 12/19/22 14:53 Last Infusion: 12/19/22 16:20 Dose: 0 mls/hr Documented By: Admin: 12/19/22 14:02 Dose: 1,000 mls/hr Documented By: ANDREE Ampicillin Sodium/Sulbactam (Sodium 3 gm/ Sodium Chloride) 100 mls @ 200 mls/hr IV NOW ONE Stop: 12/19/22 16:00 Last Infusion: 12/19/22 17:14 Dose: 0 mls/hr Documented By: Admin: 12/19/22 16:27 Dose: 200 mls/hr Documented By: MARTIN Ketorolac Tromethamine (Ketorolac 30 Mg/Ml Vial) 15 mg IV NOW ONE Stop: 12/19/22 13:55 Last Admin: 12/19/22 14:01 Dose: 15 mg Documented By: ANDREE Metoclopramide HCl (Metoclopramide 10 Mg/2 Ml Inj) 10 mg IV NOW ONE Stop: 12/19/22 15:02 Last Admin: 12/19/22 15:51 Dose: 10 mg Documented By: MARTIN Metoprolol Succinate (Metoprolol Er 25 Mg Tablet) 25 mg PO NOW ONE Stop: 12/19/22 15:02 Last Admin: 12/19/22 15:50 Dose: Not Given Documented By: AMRTIN Ondansetron HCl (Ondansetron 4 Mg Odt) 4 mg SL NOW ONE Stop: 12/19/22 13:50 Last Admin: 12/19/22 13:58 Dose: 4 mg Documented By: ANDREE Vital Signs Vital signs: Vital Signs - 8 hr 12/19/22 13:38 12/19/22 13:40 12/19/22 13:41 Temperature 98.1 F Pulse Rate 71 81 Respiratory Rate 24 Blood Pressure 182/104 H 185/109 H Pulse Oximetry 97 98 Oxygen Delivery Method Room Air 12/19/22 13:42 12/19/22 14:09 12/19/22 14:11 Temperature Pulse Rate 72 66 Respiratory Rate Blood Pressure 182/104 H Pulse Oximetry 99 99 Oxygen Delivery Method 12/19/22 14:11 12/19/22 14:20 12/19/22 14:20 Temperature Pulse Rate 62 Respiratory Rate Blood Pressure 199/95 H 170/85 H Pulse Oximetry 98 Oxygen Delivery Method 12/19/22 14:30 12/19/22 14:30 12/19/22 15:00 Temperature Pulse Rate 71 74 Respiratory Rate Blood Pressure 157/77 H Pulse Oximetry 95 99 Oxygen Delivery Method 12/19/22 15:01 12/19/22 15:01 12/19/22 15:45 Temperature Pulse Rate 76 72 Respiratory Rate Blood Pressure 141/68 H Pulse Oximetry 98 100 Oxygen Delivery Method 12/19/22 15:50 12/19/22 15:50 12/19/22 16:00 Temperature Pulse Rate 74 75 Respiratory Rate Blood Pressure 142/77 H Pulse Oximetry 100 99 Oxygen Delivery Method 12/19/22 16:35 12/19/22 16:36 12/19/22 16:36 Temperature Pulse Rate 92 H 84 Respiratory Rate Blood Pressure 140/88 Pulse Oximetry 97 99 Oxygen Delivery Method 12/19/22 17:00 Temperature Pulse Rate 101 H Respiratory Rate Blood Pressure Pulse Oximetry 96 Oxygen Delivery Method MDM - Nausea/Vomiting/Diarrhea <Patricia Gilles Tricia, [facility] - Last Filed: 12/19/22 17:27> Lab Data 12/19/22 14:10 12/19/22 14:10 Labs: Lab Results 12/19/22 12/19/22 12/19/22 Range/Units 13:45 13:45 14:10 WBC 10.1 (4.5-11.0) X10^3/uL RBC 4.71 (4.0-5.2) X10^6/uL Hgb 14.2 (12.0-16.0) g/dL Hct 41.8 (36-46) % MCV 88.8 (80-100) fL MCH 30.1 (26-34) PG MCHC 33.9 (30-36) % RDW 13.7 (11.6-14.8) % Plt Count 271 (150-400) X10^3/uL Neut % (Auto) 87.7 H (50-75) % Lymph % (Auto) 9.6 L (25-40) % [place] % (Auto) 2.4 L (3-14) % Eos % (Auto) 0.0 L (2-4) % Baso % (Auto) 0.3 (0-2) % Neut # (Auto) 8900 H (0895-3962) /uL Lymph # (Auto) 1000 L (9177-5010) /uL [place] # (Auto) 200 (0-900) /uL Eos # (Auto) 0 (0-450) /uL Baso # (Auto) 0 (0-100) /uL Sodium (137-145) mmol/L Potassium (3.4-5.1) mmol/L Chloride (98-107) mmol/L Carbon Dioxide (22-32) mmol/L BUN (7-17) mg/dL Creatinine (0.52-1.04) mg/dL Estimated GFR (>60) mL/min BUN/Creatinine Ratio (6-22) Glucose (70-100) mg/dL Calcium (8.4-10.2) mg/dL Total Bilirubin (0.2-1.3) mg/dL AST (14-36) IU/L ALT (<35) IU/L Alkaline Phosphatase (38-126) U/L Total Creatine Kinase (30-135) U/L CK-MB (CK-2) CK-MB (CK-2) Rel Index Troponin I (0.01-0.034) ng/mL C-Reactive Protein (<1.0) mg/dL Total Protein (6.3-8.2) g/dL Albumin (3.5-5.0) g/dL Globulin (1.7-4.1) g/dL Albumin/Globulin Ratio (1.0-2.8) Lipase (23-300) U/L Procalcitonin (<0.5) ng/mL Urine Color Yellow Urine Appearance Clear Urine pH 6.0 (4.5-8.0) Ur Specific [place] >=1.030 H (1.000-1.035) Urine Protein 2+ H (Negative) Urine Glucose (UA) Negative (Negative) g/dL Urine Ketones 1+ H (NEGATIVE) Urine Occult Blood 3+ H (Negative) Urine Nitrate Negative (Negative) Urine Bilirubin 1+ H (NEGATIVE) Ur Bilirubin Confirm Negative (Negative) Urine Urobilinogen 1.0 (0.2) E.U./dL Ur Leukocyte Esterase Trace H (NEGATIVE) Urine RBC >100/hpf H (0-5/HPF) Urine WBC 5-10/hpf H (0-5/HPF) Ur Squamous Epith Cells 1-5 /hpf D (0-5/HPF) Urine Bacteria None seen (None) Ur Culture Indicated? Specimen cultured Urine Test Negative (Negative) 12/19/22 12/19/22 Range/Units 14:10 14:10 WBC (4.5-11.0) X10^3/uL RBC (4.0-5.2) X10^6/uL Hgb (12.0-16.0) g/dL Hct (36-46) % MCV (80-100) fL MCH (26-34) PG MCHC (30-36) % RDW (11.6-14.8) % Plt Count (150-400) X10^3/uL Neut % (Auto) (50-75) % Lymph % (Auto) (25-40) % [place] % (Auto) (3-14) % Eos % (Auto) (2-4) % Baso % (Auto) (0-2) % Neut # (Auto) (8523-8378) /uL Lymph # (Auto) (0219-8612) /uL [place] # (Auto) (0-900) /uL Eos # (Auto) (0-450) /uL Baso # (Auto) (0-100) /uL Sodium 133 L (137-145) mmol/L Potassium 4.1 (3.4-5.1) mmol/L Chloride 97 L (98-107) mmol/L Carbon Dioxide 26 (22-32) mmol/L BUN 10 (7-17) mg/dL Creatinine 0.73 (0.52-1.04) mg/dL Estimated GFR > 60 (>60) mL/min BUN/Creatinine Ratio 13.7 (6-22) Glucose 115 H (70-100) mg/dL Calcium 9.9 (8.4-10.2) mg/dL Total Bilirubin 0.7 (0.2-1.3) mg/dL AST 30 (14-36) IU/L ALT 26 (<35) IU/L Alkaline Phosphatase 90 (38-126) U/L Total Creatine Kinase 64 (30-135) U/L CK-MB (CK-2) TNP CK-MB (CK-2) Rel Index TNP Troponin I < 0.012 (0.01-0.034) ng/mL C-Reactive Protein 0.8 (<1.0) mg/dL Total Protein 8.6 H (6.3-8.2) g/dL Albumin 4.6 (3.5-5.0) g/dL Globulin 4.0 (1.7-4.1) g/dL Albumin/Globulin Ratio 1.2 (1.0-2.8) Lipase 45 (23-300) U/L Procalcitonin < 0.03 (<0.5) ng/mL Urine Color Urine Appearance Urine pH (4.5-8.0) Ur Specific [place] (1.000-1.035) Urine Protein (Negative) Urine Glucose (UA) (Negative) g/dL Urine Ketones (NEGATIVE) Urine Occult Blood (Negative) Urine Nitrate (Negative) Urine Bilirubin (NEGATIVE) Ur Bilirubin Confirm (Negative) Urine Urobilinogen (0.2) E.U./dL Ur Leukocyte Esterase (NEGATIVE) Urine RBC (0-5/HPF) Urine WBC (0-5/HPF) Ur Squamous Epith Cells (0-5/HPF) Urine Bacteria (None) Ur Culture Indicated? Urine Test (Negative) Imaging Data US - abdomen: Radiologist's Impression: [address] [address] Ultrasound Report Signed Patient: Susana Smalls MR#: [id number] : 1985 Acct:[id number] Age/Sex: 37 / F Date of Service: 12/19/22 Loc: ED Accession Number: [id number] ?? Procedure: US abdomen limited Ordering Provider: Patricia Clarke PROCEDURE: US ABDOMEN LIMITED ? INDICATIONS:? RUQ tenderness w/vomiting ? TECHNIQUE:? Real-time focused scanning was performed of the abdomen, with image documentation.? ? COMPARISON:? CT, CT [facility] ([facility]), 01/26/2022, 19:54. ? FINDINGS:? Liver is enlarged measuring 20.6 cm with steatosis.? There is a focus of increased echogenicity within the left lobe measuring 1.1 cm. Gallbladder demonstrates multiple mobile areas of increased echogenicity.? Wall thickness is prominent measuring 12 mm.? Common bile duct measures 6 mm. ? IMPRESSION:? ? Cholelithiasis with wall thickening most suggestive of cholecystitis. ? Focal area of increased echogenicity within the liver most suggestive of hemangioma. ?? Dictated by: Valeria Boyle M.D. on 12/19/2022 at 15:19 ? ? Approved by: Valeria Boyle M.D. on 12/19/2022 at 15:21 ? MDM Narrative Medical decision making narrative: Chief Complaint: Abdominal pain and vomiting Differential diagnoses include but are not limited to:?Acute cholelithiasis, cholecystitis gastritis, esophagitis with underlying GERD, viral gastroenteritis or other acute viral process, appendicitis, pancreatitis, gastric/duodenal ulcer, infectious colitis, acute cystitis, acute hepatitis, nephrolithiasis, pyelonephritis, mesenteric ischemia, AAA, ACS/VT, or urinary retention, ectopic , fibroids, ovarian mass/cyst/torsion, STI/PID I have reviewed the patient's vital signs and nursing notes as well as prior records if available. Lab test results independently reviewed, pertinent findings: UA with a trace of leukocyte esterase, over 100 RBCs, patient is on her menses, 5-10 wbc's on microscopy. No leukocytosis but she does have a left shift, no gross electrolyte abnormalities, troponin is not elevated, lipase of 45, procalcitonin 0.03 Independently reviewed imaging including: CT abdomen and pelvis shows multiple gallstones present with wall thickening not as prominent as when identified on ultrasound exam, cholecystitis is suspected, this is an updated report from when this was initially posted as only findings initial CT report showed bilateral ovarian cyst with a thickened appearance of the sigmoid colon without inflammatory changes and incomplete distention. Abdominal ultrasound is significant for hepatomegaly with steatosis, foci of echogenicity in the left lobe measuring 1.1 cm, gallbladder with multiple stones, wall thickness is prominent measuring 12 mm, common bile duct measures 6 mm, cholelithiasis with wall thickening suggestive of cholecystitis. Ultrasound right upper quadrant Clinical decision rules or scores evaluated: Patient does not meet sirs or sepsis criteria Course of care and re-evaluations: Saw patient, she was sitting upright on the side of the bed having dry heaves, complaining of pain, she had exquisite tenderness right upper quadrant with a positive Cary sign, also had bilateral CVA tenderness. Re-evaluated patient has pain and hour later, she states that she feels better but still is so nauseous she can not stop wanting to throw up. IV fluid is infusing, ultrasound came by but then had to leave so she will go to CT prior to ultrasound. Patient's pain was treated again with Dilaudid, a 2 L of fluid Benadryl, Reglan and Zofran. Independent consultations with: from general surgery regarding acute cystitis with cholelithiasis, she understands that patient has not been p.o. tolerant and has intractable nausea vomiting. She recommends 1 dose of Unasyn, she will admit the patient to her service, patient has been NPO today otherwise, she will likely have surgery tonight and consents to this plan of care. Patient understands that she will get all of her medications that she needs to treat her pain and hydration. Patient was informed of lab and imaging results, pertinent diagnoses, consulting physicians, and treatment plan. I have spoken with the patient in regard to admission, patient understands and agrees. I have communicated the patient's evaluation and treatment plan to the admitting physician who agrees with admission. All questions answered at this time. MIPS: This encounter doesn't have any diagnosis' associated with MIPS criteria. <Jesus Lockett, DO - Last Filed: 12/19/22 17:30> Lab Data Labs: Lab Results 12/19/22 12/19/22 12/19/22 Range/Units 13:45 13:45 14:10 WBC 10.1 (4.5-11.0) X10^3/uL RBC 4.71 (4.0-5.2) X10^6/uL Hgb 14.2 (12.0-16.0) g/dL Hct 41.8 (36-46) % MCV 88.8 (80-100) fL MCH 30.1 (26-34) PG MCHC 33.9 (30-36) % RDW 13.7 (11.6-14.8) % Plt Count 271 (150-400) X10^3/uL Neut % (Auto) 87.7 H (50-75) % Lymph % (Auto) 9.6 L (25-40) % [place] % (Auto) 2.4 L (3-14) % Eos % (Auto) 0.0 L (2-4) % Baso % (Auto) 0.3 (0-2) % Neut # (Auto) 8900 H (7957-9863) /uL Lymph # (Auto) 1000 L (1786-6909) /uL [place] # (Auto) 200 (0-900) /uL Eos # (Auto) 0 (0-450) /uL Baso # (Auto) 0 (0-100) /uL Sodium (137-145) mmol/L Potassium (3.4-5.1) mmol/L Chloride (98-107) mmol/L Carbon Dioxide (22-32) mmol/L BUN (7-17) mg/dL Creatinine (0.52-1.04) mg/dL Estimated GFR (>60) mL/min BUN/Creatinine Ratio (6-22) Glucose (70-100) mg/dL Calcium (8.4-10.2) mg/dL Total Bilirubin (0.2-1.3) mg/dL AST (14-36) IU/L ALT (<35) IU/L Alkaline Phosphatase (38-126) U/L Total Creatine Kinase (30-135) U/L CK-MB (CK-2) CK-MB (CK-2) Rel Index Troponin I (0.01-0.034) ng/mL C-Reactive Protein (<1.0) mg/dL Total Protein (6.3-8.2) g/dL Albumin (3.5-5.0) g/dL Globulin (1.7-4.1) g/dL Albumin/Globulin Ratio (1.0-2.8) Lipase (23-300) U/L Procalcitonin (<0.5) ng/mL Urine Color Yellow Urine Appearance Clear Urine pH 6.0 (4.5-8.0) Ur Specific [place] >=1.030 H (1.000-1.035) Urine Protein 2+ H (Negative) Urine Glucose (UA) Negative (Negative) g/dL Urine Ketones 1+ H (NEGATIVE) Urine Occult Blood 3+ H (Negative) Urine Nitrate Negative (Negative) Urine Bilirubin 1+ H (NEGATIVE) Ur Bilirubin Confirm Negative (Negative) Urine Urobilinogen 1.0 (0.2) E.U./dL Ur Leukocyte Esterase Trace H (NEGATIVE) Urine RBC >100/hpf H (0-5/HPF) Urine WBC 5-10/hpf H (0-5/HPF) Ur Squamous Epith Cells 1-5 /hpf D (0-5/HPF) Urine Bacteria None seen (None) Ur Culture Indicated? Specimen cultured Urine Test Negative (Negative) 12/19/22 12/19/22 Range/Units 14:10 14:10 WBC (4.5-11.0) X10^3/uL RBC (4.0-5.2) X10^6/uL Hgb (12.0-16.0) g/dL Hct (36-46) % MCV (80-100) fL MCH (26-34) PG MCHC (30-36) % RDW (11.6-14.8) % Plt Count (150-400) X10^3/uL Neut % (Auto) (50-75) % Lymph % (Auto) (25-40) % [place] % (Auto) (3-14) % Eos % (Auto) (2-4) % Baso % (Auto) (0-2) % Neut # (Auto) (1592-7927) /uL Lymph # (Auto) (2142-2213) /uL [place] # (Auto) (0-900) /uL Eos # (Auto) (0-450) /uL Baso # (Auto) (0-100) /uL Sodium 133 L (137-145) mmol/L Potassium 4.1 (3.4-5.1) mmol/L Chloride 97 L (98-107) mmol/L Carbon Dioxide 26 (22-32) mmol/L BUN 10 (7-17) mg/dL Creatinine 0.73 (0.52-1.04) mg/dL Estimated GFR > 60 (>60) mL/min BUN/Creatinine Ratio 13.7 (6-22) Glucose 115 H (70-100) mg/dL Calcium 9.9 (8.4-10.2) mg/dL Total Bilirubin 0.7 (0.2-1.3) mg/dL AST 30 (14-36) IU/L ALT 26 (<35) IU/L Alkaline Phosphatase 90 (38-126) U/L Total Creatine Kinase 64 (30-135) U/L CK-MB (CK-2) TNP CK-MB (CK-2) Rel Index TNP Troponin I < 0.012 (0.01-0.034) ng/mL C-Reactive Protein 0.8 (<1.0) mg/dL Total Protein 8.6 H (6.3-8.2) g/dL Albumin 4.6 (3.5-5.0) g/dL Globulin 4.0 (1.7-4.1) g/dL Albumin/Globulin Ratio 1.2 (1.0-2.8) Lipase 45 (23-300) U/L Procalcitonin < 0.03 (<0.5) ng/mL Urine Color Urine Appearance Urine pH (4.5-8.0) Ur Specific [place] (1.000-1.035) Urine Protein (Negative) Urine Glucose (UA) (Negative) g/dL Urine Ketones (NEGATIVE) Urine Occult Blood (Negative) Urine Nitrate (Negative) Urine Bilirubin (NEGATIVE) Ur Bilirubin Confirm (Negative) Urine Urobilinogen (0.2) E.U./dL Ur Leukocyte Esterase (NEGATIVE) Urine RBC (0-5/HPF) Urine WBC (0-5/HPF) Ur Squamous Epith Cells (0-5/HPF) Urine Bacteria (None) Ur Culture Indicated? Urine Test (Negative) Discharge Plan Departure Patient Disposition: Admitted As Inpatient Clinical Impression: Cholecystitis, acute with cholelithiasis Qualifiers: Biliary obstruction: without biliary obstruction Qualified Code(s): K80.00 - Calculus of gallbladder with acute cholecystitis without obstruction Admit Date/Time: 12/19/22 17:26 Admit Provider: Khushbu Milton <Jesus Lockett, - Last Filed: 12/19/22 17:30> Cosign ED Attending Cosignature Attestation: Dr Lockett Co-Sign Statement: I was available for consultation during this patient's emergency department visit. This chart is signed by myself for administrative purposes only. I did not have direct contact with this patient during this visit. They were seen independently by the APC.
[2022-12-19] MEDS: ONDANSETRON 4 MG ODT SL (13:58)
[2022-12-19 13:59] LABS: Appearance Urine UA CLEAR; Bilirubin Urine UA 1+ (NEGATIVE); Color Urine UA YELLOW; Glucose Urine UA NEGATIVE (Negative); Ketones Urine UA 1+ (NEGATIVE); Leukocyte Esterase Urine UA TRACE (NEGATIVE); Nitrite Urine UA NEGATIVE (Negative); Occult Blood Urine UA 3+ (Negative); Protein Urine UA 2+ (Negative); Specific Gravity Urine UA >=1.030 (1.000-1.035)
[2022-12-19] MEDS: KETOROLAC 30 MG/ML VIAL 15 MG IV (14:01)
[2022-12-19] MEDS: HYDROMORPHONE 0.5 MG INJ IV ×2 (14:02→16:27)
[2022-12-19] MEDS: SODIUM CHLORIDE 0.9% 1,000 ML 1000 ML IV (14:02)
[2022-12-19 14:06] LABS: Pregnancy Test Urine Negative (Negative)
[2022-12-19 14:09] LABS: Ictotest Urine Negative (Negative); RBC Urine >100/HPF (0-5/HPF); WBC Urine 5-10/HPF (0-5/HPF)
[2022-12-19] MEDS: ONDANSETRON 4 MG/2 ML INJ IV ×2 (14:09→17:18)
[2022-12-19 14:10] LABS: Bacteria Urine None Seen; Culture Indicated Urine Specimen Cultured; Squamous Epithelial Cell Urine 1-5 /HPF (0-5/HPF)
[2022-12-19 14:20] LABS: Add Manual Diff / Slide Review NO; Basophils Absolute Auto 0 /uL (0-100); Basophils Percent Auto 0.3 % (0-2); Eosinophils Absolute Auto 0 /uL (0-450); Hematocrit 41.8 % (36-46); Hemoglobin 14.2 g/dL (12.0-16.0); Lymphocytes Absolute Auto 1000 /uL (1100-4500); Lymphocytes Percent Auto 9.6 % (25-40); Mean Corpuscular HGB Conc 33.9 % (30-36); Mean Corpuscular Hemoglobin 30.1 PG (26-34); Mean Corpuscular Volume 88.8 fL (80-100); Monocytes Absolute Auto 200 /uL (0-900); Monocytes Percent Auto 2.4 % (3-14); Neutrophils Absolute Auto 8900 /uL (1500-7000); Neutrophils Percent Auto 87.7 % (50-75); Platelet Count 271 X10^3/uL (150-400); Red Blood Cell Count 4.71 X10^6/uL (4.0-5.2); Red Cell Distribution Width 13.7 % (11.6-14.8); White Blood Cell Count 10.1 X10^3/uL (4.5-11.0)
--- NOTE | 2022-12-19 14:29 | DI.CT.S_ITS ---
PROCEDURE: CT ABDOMEN PELVIS W CON INDICATIONS: Rt flank pain, concern for cholecystitis versus nephrolithia TECHNIQUE: After the administration of oral and IV contrast, axial sections were acquired from the lung bases to the pubic symphysis. Coronal and sagittal reformats were performed. For radiation dose reduction, the following was used: automated exposure control, adjustment of mA and/or kV according to patient size. COMPARISON: [facility], US, US ABDOMEN LIMITED, 12/19/2022, 14:45. CT, CT KIDNEY URETER BLADDER (KUB), 01/26/2022, 19:54. FINDINGS: Image quality: Excellent. Lung bases: Unremarkable. Heart: No significant findings. ABDOMEN: Liver: Unremarkable. Gallbladder: Multiple stones are noted within the gallbladder lumen. There is mild appearance of wall thickening appearing more prominent on ultrasound. Biliary ducts: Unremarkable. Pancreas: Unremarkable. Spleen: Unremarkable. Adrenal Glands: Unremarkable. Kidneys and Ureters: Unremarkable. Stomach and Bowel: Stomach, small bowel loops, and colon are nonobstructive. There is a thickened appearance of the sigmoid colon without inflammatory change. It is incompletely distended. Peritoneum: No abnormal intraperitoneal fluid. No free air. Ventral Wall: No hernia. Abdominal Nodes: No retroperitoneal or mesenteric adenopathy by size criteria. Vessels: Aorta and inferior vena cava are normal in size. PELVIS: Pelvic Organs: Bilateral ovarian cysts are present measuring 3 cm on the right and 2.9 cm on the left. Bladder: Unremarkable. Pelvic Nodes: No enlarged lymph nodes. Miscellaneous: No inguinal hernias are seen. Bones: Unremarkable. IMPRESSION: Multiple gallstones are present with appearance of wall thickening although not as prominent as when identified on ultrasound exam. Cholecystitis is suspected. No nephrolithiasis. Bilateral ovarian cysts. Thickened appearance of the sigmoid colon without inflammatory change suspected to be related to incomplete distention. Dictated by: Valeria Boyle M.D. on 12/19/2022 at 15:42 Approved by: Valeria Boyle M.D. on 12/19/2022 at 15:44
[2022-12-19 14:34] LABS: Creatine Kinase 64 U/L (30-135); Lipase 45 U/L (23-300)
[2022-12-19 14:36] LABS: Alanine Aminotransferase 26 IU/L (<35); Albumin 4.6 g/dL (3.5-5.0); Albumin Globulin Ratio 1.2 (1.0-2.8); Alkaline Phosphatase 90 U/L (38-126); Aspartate Aminotransferase 30 IU/L (14-36); BUN Creatinine Ratio 13.7 (6-22); Bilirubin Total 0.7 mg/dL (0.2-1.3); Blood Urea Nitrogen 10 mg/dL (7-17); C-Reactive Protein Quant 0.8 mg/dL (<1.0); Calcium 9.9 mg/dL (8.4-10.2); Carbon Dioxide 26 mmol/L (22-32); Chloride 97 mmol/L (98-107); Estimated Glomerular Filt Rate > 60 mL/min (>60); Glucose 115 mg/dL (70-100); HEMOLYSIS < 15 (0-50); Potassium 4.1 mmol/L (3.4-5.1); Sodium 133 mmol/L (137-145); Total Protein 8.6 g/dL (6.3-8.2)
[2022-12-19 14:45] LABS: Troponin I < 0.012 ng/mL (0.01-0.034)
[2022-12-19 14:50] LABS: Procalcitonin < 0.03 ng/mL (<0.5)
[2022-12-19] MEDS: diphenhydrAMINE 50 MG/ML VIAL 25 MG IV (15:51)
[2022-12-19] MEDS: METOCLOPRAMIDE 10 MG/2 ML INJ IV (15:51)
[2022-12-19] MEDS: AMPICILLIN/SULBACTAM 3 GM 3 GM in SODIUM CHLORIDE 0.9% 100 ML IV (16:27)
--- NOTE | 2022-12-19 17:50 | PC.NURSE ---
Day shift: Pt in room from ED at approx 1735. She is A&Ox4. Enjoying ice chips with no reports of nausea at this time. Also reports minimal bilat flank pain at this time. Oriented to room and call light. VS ok but BP is elevated 165/85. Dr Milton knows Pt is in room 224. Plan is for lap choli tomorrow at 0800. Pt to be NPO at midnight. Pt can ambulate and is steady on her feet. Call light in reach. Pt does also have inspiratory and expiratory wheezes throughout. Pt states I have these wheezes most of the time.
--- NOTE | 2022-12-19 18:07 | P.HP_ITS ---
History of Present Illness History of Present Illness Date Patient Seen: 12/19/22 Chief complaint: thinks kidney infection throwing up since 2am Narrative: Mrs. Smalls presents to the emergency room with abdominal pain in the right upper quadrant. She thought maybe she had was having a kidney infection. She is never had pain like this before. She is not had anything to eat since 11:00 a.m. when she had a popsicle. She has had some problems with stomach pains and GERD in the past. She does not think that she is had gallbladder issues in the past though she does note that sometimes she does have some pain that is similar to this though not as severe when she eats certain types of foods maybe spicy foods. Was not aware that she had a gallstone she is had 3 children no abdom inal surgeries. Codeine gives her hives. She denies yellowing of the eyes or white creamy colored stools Patient History Medical History Chest wall contusion Chronic diarrhea Chronic hypertension complicating or reason for care during childbirth DJD (degenerative joint disease), lumbosacral Facet arthropathy, lumbosacral Foraminal stenosis of lumbosacral region Gestational hypertension Left wrist sprain Major depressive disorder with single episode, in full remission (04/08/17) Mild tobacco use disorder, in early remission (08/28/15) Morbid obesity with BMI of 45.0-49.9, adult Obesity depression Sleep apnea Surgical History History of microdiscectomy (11/2015) History of third molar tooth extraction Status post epidural steroid injection (03/2016) Family & Social History Social History: household members spouse,family Prior Living Arrangements House Safety & Behavioral: Feels Safe in Current Yes Environment Been Physically Hurt or No Threatened By a Person Tobacco & Substance use: Tobacco type cigarettes Smoking Status Current some day smoker alcohol intake current alcohol intake frequency holiday/special occasion Substance Use Type marijuana Meds Home Medications and Allergies Home Medications Medication Instructions Recorded Confirmed Type albuterol sulfate 2.5 mg/3 mL 2.5 mg (3 mL) inhalation Q4-6H PRN 05/14/21 08/02/22 Rx (0.083 %) solution for nebulization shortness of breath or wheezing #90 mL norgestimate 0.25 mg-ethinyl 1 tab PO DAILY #84 tabs 12/25/21 08/02/22 Rx estradiol 35 mcg tablet (Sprintec (28)) bupropion HCl 150 mg tablet,12 hr 150 mg PO BID #180 tabs 06/09/22 08/02/22 Rx sustained-release metoprolol tartrate 50 mg tablet 50 mg PO BID #180 tabs 07/11/22 08/02/22 Rx duloxetine 60 mg capsule,delayed 60 mg PO DAILY #90 caps 08/12/22 Rx release albuterol sulfate 90 mcg/actuation See Rx Instructions .Route 10/07/22 10/07/22 Rx aerosol inhaler .COMPLEX #8.5 grams hydrocodone 5 mg-acetaminophen 325 1 tab PO BID PRN pain #60 tabs 10/07/22 10/07/22 Rx mg tablet pramipexole 0.25 mg tablet 0.5 mg .Route BEDTIME PRN restless 10/07/22 10/07/22 Rx leg #180 tabs Allergies Allergy/AdvReac Type Severity Reaction Status Date / Time codeine [CODEINE] Allergy Mild HIVES Verified 12/19/22 13:43 lisinopril [LISINOPRIL] AdvReac Mild cough Verified 12/19/22 13:43 Exam Vital Signs (past 8 hours): - 12/19/22 13:38 12/19/22 13:40 12/19/22 13:41 Temperature 98.1 F Pulse Rate 71 81 Respiratory Rate 24 Blood Pressure 182/104 H 185/109 H Pulse Oximetry 97 98 Oxygen Delivery Method Room Air 12/19/22 13:42 12/19/22 14:09 12/19/22 14:11 Temperature Pulse Rate 72 66 Respiratory Rate Blood Pressure 182/104 H Pulse Oximetry 99 99 Oxygen Delivery Method 12/19/22 14:11 12/19/22 14:20 12/19/22 14:20 Temperature Pulse Rate 62 Respiratory Rate Blood Pressure 199/95 H 170/85 H Pulse Oximetry 98 Oxygen Delivery Method 12/19/22 14:30 12/19/22 14:30 12/19/22 15:00 Temperature Pulse Rate 71 74 Respiratory Rate Blood Pressure 157/77 H Pulse Oximetry 95 99 Oxygen Delivery Method 12/19/22 15:01 12/19/22 15:01 12/19/22 15:45 Temperature Pulse Rate 76 72 Respiratory Rate Blood Pressure 141/68 H Pulse Oximetry 98 100 Oxygen Delivery Method 12/19/22 15:50 12/19/22 15:50 12/19/22 16:00 Temperature Pulse Rate 74 75 Respiratory Rate Blood Pressure 142/77 H Pulse Oximetry 100 99 Oxygen Delivery Method 12/19/22 16:35 12/19/22 16:36 12/19/22 16:36 Temperature Pulse Rate 92 H 84 Respiratory Rate Blood Pressure 140/88 Pulse Oximetry 97 99 Oxygen Delivery Method 12/19/22 17:00 Temperature Pulse Rate 101 H Respiratory Rate Blood Pressure Pulse Oximetry 96 Oxygen Delivery Method Oxygen Delivery Method Room Air Const General: cooperative, healthy appearing and comfortable Nutritional Appearance: obese Orientation: oriented x3 HENMT Head: normal to inspection Eyes General: appearance normal, both eyes and all related structures Resp Effort & Inspection: normal respiratory effort and able to speak in complete sentences Cardio Pulses: radial pulses present GI Palpation: soft and tender (Markedly tender right upper quadrant) Extrem General: normal to inspection Objective Labs 12/19/22 14:10 12/19/22 14:10 Labs: Laboratory Results - last 24 hr 12/19/22 12/19/22 12/19/22 13:45 13:45 14:10 WBC 10.1 RBC 4.71 Hgb 14.2 Hct 41.8 MCV 88.8 MCH 30.1 MCHC 33.9 RDW 13.7 Plt Count 271 Neut % (Auto) 87.7 H Lymph % (Auto) 9.6 L [place] % (Auto) 2.4 L Eos % (Auto) 0.0 L Baso % (Auto) 0.3 Neut # (Auto) 8900 H Lymph # (Auto) 1000 L [place] # (Auto) 200 Eos # (Auto) 0 Baso # (Auto) 0 Sodium Potassium Chloride Carbon Dioxide BUN Creatinine Estimated GFR BUN/Creatinine Ratio Glucose Calcium Total Bilirubin AST ALT Alkaline Phosphatase Total Creatine Kinase CK-MB (CK-2) CK-MB (CK-2) Rel Index Troponin I C-Reactive Protein Total Protein Albumin Globulin Albumin/Globulin Ratio Lipase Procalcitonin Urine Color Yellow Urine Appearance Clear Urine pH 6.0 Ur Specific [place] >=1.030 H Urine Protein 2+ H Urine Glucose (UA) Negative Urine Ketones 1+ H Urine Occult Blood 3+ H Urine Nitrate Negative Urine Bilirubin 1+ H Ur Bilirubin Confirm Negative Urine Urobilinogen 1.0 Ur Leukocyte Esterase Trace H Urine RBC >100/hpf H Urine WBC 5-10/hpf H Ur Squamous Epith Cells 1-5 /hpf D Urine Bacteria None seen Ur Culture Indicated? Specimen cultured Urine Test Negative 12/19/22 12/19/22 14:10 14:10 WBC RBC Hgb Hct MCV MCH MCHC RDW Plt Count Neut % (Auto) Lymph % (Auto) [place] % (Auto) Eos % (Auto) Baso % (Auto) Neut # (Auto) Lymph # (Auto) [place] # (Auto) Eos # (Auto) Baso # (Auto) Sodium 133 L Potassium 4.1 Chloride 97 L Carbon Dioxide 26 BUN 10 Creatinine 0.73 Estimated GFR > 60 BUN/Creatinine Ratio 13.7 Glucose 115 H Calcium 9.9 Total Bilirubin 0.7 AST 30 ALT 26 Alkaline Phosphatase 90 Total Creatine Kinase 64 CK-MB (CK-2) TNP CK-MB (CK-2) Rel Index TNP Troponin I < 0.012 C-Reactive Protein 0.8 Total Protein 8.6 H Albumin 4.6 Globulin 4.0 Albumin/Globulin Ratio 1.2 Lipase 45 Procalcitonin < 0.03 Urine Color Urine Appearance Urine pH Ur Specific [place] Urine Protein Urine Glucose (UA) Urine Ketones Urine Occult Blood Urine Nitrate Urine Bilirubin Ur Bilirubin Confirm Urine Urobilinogen Ur Leukocyte Esterase Urine RBC Urine WBC Ur Squamous Epith Cells Urine Bacteria Ur Culture Indicated? Urine Test Assessment & Plan Assessment and plan (1) Cholecystitis, acute with cholelithiasis: Qualifiers: Biliary obstruction: without biliary obstruction Qualified Code(s): K80.00 - Calculus of gallbladder with acute cholecystitis without obstruction Status: Acute Assessment & Plan narrative: I discussed the risks benefits and alternatives of proceeding with a laparoscopic cholecystectomy. I did describe the antibiotics can treat this infection and she probably would get better. However the gallstones now known to be symptomatic we will not go away on their own and the only way to ensure that no further issues occur because of her gallbladder is to proceed with a cholecystectomy. The standard of care is to remove this prior to her discharge from the hospital and she understands and would like to proceed. I discussed particularly the risks including bleeding infection need for further surgeries or procedures and in particular injury to the common bile duct as possible complications. She understands and would like to proceed with cholecystectomy as soon as possible. Time Spent With Patient Critical Care time: I spent a total of [] minutes of critical care time on this patient's care today; this time is exclusive of procedural time. Quality VTE Deep Vein Thrombosis/Pulmonary Embolism Present on Admission: No
[2022-12-19 18:09] LABS: COVID19 -Nasal RAPID Negative (Negative)
[2022-12-19] MEDS: KETOROLAC 30 MG/ML VIAL IV (18:09)
[2022-12-19] MEDS: SODIUM CHLORIDE 0.9% 1,000 ML 84 ML IV (18:16)
[2022-12-19] MEDS: buPROPion SR 150 MG TAB PO (22:15)
[2022-12-19] MEDS: METOPROLOL IR 50 MG TABLET PO (22:15)
[2022-12-19] MEDS: AMPICILLIN/SULBACTAM 1.5 GM 1.5 GM in SODIUM CHLORIDE 0.9% 100 ML IV (22:56)
[2022-12-20] VITALS (13 sets, daily range): BP systolic 104–178; BP diastolic 45–97; PULSE 70–892; RESP 14–92; TEMP 36.3–37.6; O2SAT 4–98; BMI 44.0
--- NOTE | 2022-12-20 | PATH_ITS ---
[facility] Accession Number: [id number] No. of containers..01 Tissue . 01 Material submitted: . gallbladder - GALLBLADDER . 01 Diagnosis: Gallbladder, Cholecystectomy: Cholelithiasis with chronic active cholecystitis. One benign cystic duct lymph node. No evidence of neoplasm. MRV 12/25/2022 1528 Local . 01 Electronically signed: . Zack Enrique MD, PhD, Pathologist NPI- [id number] . 01 Gross description: . The specimen is received in formalin labeled with the patient's name, , and gallbladder, and consists of an intact gallbladder measuring 8.2 x 2.4 x 2.3 cm with green-fortune smooth serosa and a rough and unremarkable hepatic surface. The cystic duct is received closed with a clamp, is inked blue, and a pericystic lymph node candidate is identified measuring 1.0 cm in greatest dimension. The lumen is filled with multiple green faceted calculi measuring up to 1.3 cm in greatest dimension grossly obstructing the cystic duct admixed with light green solidified bile. The mucosa is red-fortune and velvety with adherent solidified green bile. No pinpoint yellow areas of discoloration, polyps, or lesions are identified. The pink average 0.3 cm thick. Professor Of Poultry Science sections to include the cystic duct margin, one-half of the bisected lymph node candidate, and full thickness sections are submitted in cassette A1-A2. ([id number]) /MRV 12/23/2022 1547 Local . 01 Pathologist provided ICD-10: K80.60, K81.2 . 01 CPT . 633937 Specimen Comment: A courtesy copy of this report has been sent to [facility] Performed at: [address] [facility] [address] [place] [facility] [address], [place], [place] [id number] MD Jordan Bishop MD Phone: [phone]
[2022-12-20] MEDS: KETOROLAC 30 MG/ML VIAL IV ×2 (01:21→06:22)
[2022-12-20] MEDS: ACETAMINOPHEN 325 MG TABLET 975 MG PO ×2 (01:21→06:21)
[2022-12-20] MEDS: AMPICILLIN/SULBACTAM 1.5 GM 1.5 GM in SODIUM CHLORIDE 0.9% 100 ML IV (05:00)
[2022-12-20] MEDS: HYDROMORPHONE 0.5 MG INJ IV ×3 (05:04→19:06)
--- NOTE | 2022-12-20 07:50 | PC.NURSE ---
Day shift: Pt off unit for keven fernándezi at approx 0745.
--- NOTE | 2022-12-20 08:03 | PM.PREOP ---
Pre-operative Note Interval Note History & Physical reviewed/Exam performed by Physician: Yes Changes to H&P: No
[2022-12-20] MEDS: LACTATED RINGERS 1,000 ML 42 ML IV ×3 (08:12→11:24)
[2022-12-20] MEDS: CEFAZOLIN 2 GM/100 ML PREMIX 100 ML IV (08:31)
--- NOTE | 2022-12-20 08:47 | SUR.OPER ---
Supine on padded OR bed, head on pillow, safety belt at thigh, left arm padded and tucked at side. Right arm secured on padded arm board <90 degrees abduction. Legs uncrossed. Padded footboard in place. Tape over blanket to secure lower legs. pt positioned per direction and supervision of Dr Milton.
[2022-12-20] MEDS: BUPIVACAINE 0.5% W/ EPI (PF) 30 ML VIAL 60 ML INJ (08:55)
--- NOTE | 2022-12-20 09:58 | PC.NURSE ---
Day shift: Pt remains not in AC unit room at this time.
[2022-12-20] MEDS: ALBUTEROL 2.5 MG/3 ML NEB (ADULT) INH (11:00)
[2022-12-20] MEDS: HYDROMORPHONE 2 MG INJ IV ×2 (11:06→11:26)
[2022-12-20] MEDS: ONDANSETRON 4 MG/2 ML INJ IV (11:06)
[2022-12-20] MEDS: fentaNYL 100 MCG/2 ML INJ IV (11:07)
[2022-12-20] MEDS: ONDANSETRON 4 MG ODT SL (11:30)
--- NOTE | 2022-12-20 12:11 | P.OP_ITS ---
Operative Date/Time/Diagnoses Date of procedure: 12/20/22 Time of procedure: 08:30 Pre-op diagnosis: Acute cholecystitis Post-op diagnosis: same Procedure & Clinicians Procedure: Laparoscopic cholecystectomy Same procedure as scheduled: Yes Indications: Acute cholecystitis Surgeon: Khushbu Milton Click Yes if Unassisted: Yes Anesthesia Type: General Operative Notes Specimen(s): other (Gallbladder) Prosthetic devices, grafts, tissues, transplants, or devices: Patient was taken to the operating room and placed supine on the operating room table. Bilateral SCDs were placed. Preoperative antibiotics were administered. A time-out was performed. General endotracheal anesthesia was induced. The patient had some high peak airway pressures initially but improved with administration of albuterol. The abdomen was prepped and draped in the usual sterile fashion. Local anesthetic was infused above the umbilicus and a 11 blade scalpel was used to incise the skin and carry this incision down through the subcutaneous tissues grabbing the anterior abdominal wall fascia with 2 Rosi retractors and elevating them. The abdomen was then entered sharply with an 11 blade scalpel a finger sweep ensured the correct location. The Vinicius trocar was placed into the abdomen and the abdomen was then insufflated. Patient tolerated this well and was placed in a reversed Trendelenburg position. The camera was introduced into the abdomen and the abdomen was inspected. There was no evidence of entry injury and there was some evidence of inflammation of the gallbladder including omental attachments. The accessory trocars of 5 mm were placed in the subcostal positions x3, after administration of local anesthesia under direct visualization. I then proceeded with grasping the gallbladder and elevating it cephalad and entering the peritoneal lining taking it down and beginning to dissect a critical view. As I went further down the critical structures came into view. Photographs were taken intraoperatively, showing the anatomy. Initially it appeared that there was a large cystic duct and a large cystic artery. As further dissection occurred I realized that the structure that appeared to be either the cystic duct or more gallbladder was actually the common bile duct. Further careful dissection using a peanut dissector revealed a very short cystic duct coming off of the common bile duct. The cystic artery was seen entering directly into the gallbladder. Again intraoperative photographs show the anatomy. The cystic artery was doubly clipped and ligated and next the cystic duct was clipped with 2 clips on the stay side and 1 on the specimen side. The cystic duct was then ligated. The gallbladder was then relieved from the gallbladder fossa of the liver using electrocautery the hepatic bed was dried using electrocautery. The operative sites were inspected for hemostasis and looked okay there was a little bit of oozing deep down by the common bile duct and so I placed 1 piece of Surgicel in that location. Overall postoperatively everything looked fine and the accessory trocars were removed under direct visualization the abdomen was desufflated. The fascia was closed with 2 previously placed 0 Vicryl sutures in an interrupted fashion and the skin was closed with 4-0 Monocryl. The wounds were dressed with Steri-Strips and the pat ient tolerated the procedure well. EBL was about 50 and there were no complications.
[2022-12-20] MEDS: DULOXETINE 30 MG CAPSULE 60 MG PO (12:49)
[2022-12-20] MEDS: buPROPion SR 150 MG TAB PO ×2 (12:49→21:38)
[2022-12-20] MEDS: METOPROLOL IR 50 MG TABLET PO ×2 (12:49→21:38)
[2022-12-20] MEDS: HYDROCODONE/ACET 5/325 TABLET 2 TAB PO ×2 (12:49→16:49)
[2022-12-20] MEDS: IBUPROFEN 400 MG TABLET 600 MG PO ×2 (13:41→21:39)
--- NOTE | 2022-12-20 14:56 | PC.NURSE ---
Day shift: Pt OOB and to the BR for the second time since returning to room. Right site lap site with scant amount of blood. Applied 2x2 with tegaderm to site. Will continue to monitor. Pt is concerned at this time.
--- NOTE | 2022-12-20 15:15 | CM.DANOTE ---
DCP: Case received, EMR reviewed and checked on patient. She was up getting ready to use the commode, COUNTERINTELLIGENCE SPECIALIST in the room. Completed DCP assessment based upon information currently available. Patient is a 37 year old female who admitted yesterday afternoon to the care of the hospitalist/surgical team. PCP: Dr. White. Payer: confirmed: [id number]/Medicaid. Patient came to the hospital via private vehicle secondary to vomiting and complaints of right upper quadrant pain. Patient originally thought that she might have a kidney stone. Patient was diagnosed with Cholecystitis, acute with choleithiasis. Patient has had laparoscopic cholecystectomy today. Attempted to meet with patient several times, but had staff in her room. Did enter, placed name of this DC Client Technical Professional on her board, as she was walking into the bathroom with staff. Patient is alert and oriented, resides in [place] with her spouse, Bonilla. She is employed at [employer]. P: DCP to continue to follow. Patient should be able to go home when deemed medically stable. Katia Bermudez RN/Team Manager Discharge Planning/Care Management CM Discharge Assessment Start: 12/20/22 15:14 Freq: Status: Active Protocol: Document 12/20/22 15:14 (Rec: 12/20/22 15:15 [id number]) Discharge Planning Assessment Assigned Meatcutter Katia Bermudez RN/Team Manager Advance Directives? No History Provided By Patient,Medical Record Prior Living Arrangements House Household Members spouse,family Type of transporation used prior to Drives own vehicle admit Independent with ADL's Yes Is patient alert and oriented? Yes Caregiver for Another No Barriers to Discharge No Discharge Plan Home Transportation Arrangement Spouse Referrals Initiated None needed Whiteboard Updated in Patient Room with Yes name and ext. # of Meatcutter Review Status In Process Next Review Type Continued Stay Review
--- NOTE | 2022-12-20 16:44 | PC.NURSE ---
Day shift: Pt ambulated in ben[place] to main RN station and back to room 224 with this newspaper writer. Tolerated well but pain still present RLQ. Back in bed and is working on ordering dinner.
[2022-12-20] MEDS: SODIUM CHLORIDE 0.9% FLUSH 10 ML IV ×2 (19:06→21:38)
[2022-12-20] MEDS: DOCUSATE 100 MG CAPSULE PO (21:38)
[2022-12-21] MEDS: HYDROCODONE/ACET 5/325 TABLET 1 TAB PO ×3 (00:58→12:37)
[2022-12-21 01:22] VITALS: BP 128/51; PULSE 68; RESP 18; TEMP 37; O2SAT 93
[2022-12-21] MEDS: SODIUM CHLORIDE 0.9% FLUSH 10 ML IV ×2 (04:05→08:39)
[2022-12-21] MEDS: HYDROMORPHONE 0.5 MG INJ IV (04:05)
[2022-12-21] MEDS: IBUPROFEN 400 MG TABLET 600 MG PO (06:22)
[2022-12-21 08:00] VITALS: BP 137/69; PULSE 63; RESP 19; TEMP 37.2; O2SAT 94
[2022-12-21] MEDS: DULOXETINE 30 MG CAPSULE 60 MG PO (08:38)
[2022-12-21] MEDS: DOCUSATE 100 MG CAPSULE PO (08:39)
[2022-12-21] MEDS: buPROPion SR 150 MG TAB PO (08:39)
[2022-12-21 08:45] VITALS: BP 146/68; PULSE 72
[2022-12-21] MEDS: METOPROLOL IR 50 MG TABLET PO (08:50)
--- NOTE | 2022-12-21 11:57 | P.DS_ITS ---
History of Present Illness History of Present Illness Chief complaint: thinks kidney infection throwing up since 2am Narrative: Mrs. Smalls presents to the emergency room with abdominal pain in the right upper quadrant. She thought maybe she had was having a kidney infection. She is never had pain like this before. She is not had anything to eat since 11:00 a.m. when she had a popsicle. She has had some problems with stomach pains and GERD in the past. She does not think that she is had gallbladder issues in the past though she does note that sometimes she does have some pain that is similar to this though not as severe when she eats certain types of foods maybe spicy foods. Was not aware that she had a gallstone she has had 4 children, no abdominal surgeries. Codeine gives her hives. She denies yellowing of the eyes or white creamy colored stools Discharge Providers Provider Date of admission: 12/19/22 17:26 Discharge Date: 12/21/22 Primary care physician: Nevin White DO Discharge provider: Khushbu Milton MD Exam Vital Signs (past 8 hours): - 12/21/22 08:45 12/21/22 07:00 12/21/22 08:00 Temperature 98.9 F Pulse Rate 72 63 Respiratory Rate 19 Blood Pressure 146/68 H 137/69 Pulse Oximetry 94 Oxygen Delivery Method Room Air Oxygen Delivery Method Room Air Oxygen Flow Rate 0 Const General: cooperative and healthy appearing Nutritional Appearance: obese Orientation: oriented x3 Other: pleaseant HENID Head: normal to inspection Eyes General: appearance normal, both eyes and all related structures Resp Effort & Inspection: normal respiratory effort and able to speak in complete sentences Cardio Pulses: radial pulses present GI Palpation: soft and No tender Other: Wounds are clean dry and intact there is some ecchymosis around the lateral most port site stable within normal limits. There is tenderness to palpation in the right upper quadrant with deep palpation but appropriate for postoperative. Psych Judgment: judgment good Objective Labs 12/19/22 14:10 12/19/22 14:10 [facility] Medical History (Reviewed 12/19/22 @ 13:59 by Patricia Clarke, [facility]) Chest wall contusion Chronic diarrhea Chronic hypertension complicating or reason for care during childbirth DJD (degenerative joint disease), lumbosacral Facet arthropathy, lumbosacral Foraminal stenosis of lumbosacral region Gestational hypertension Left wrist sprain Major depressive disorder with single episode, in full remission (04/08/17) Mild tobacco use disorder, in early remission (08/28/15) Morbid obesity with BMI of 45.0-49.9, adult Obesity depression Sleep apnea Surgical History History of microdiscectomy (11/2015) History of third molar tooth extraction Status post epidural steroid injection (03/2016) Social History household members: spouse and family Smoking Status: Current some day smoker Tobacco: How many years used: 20 alcohol intake: current substance use type: marijuana (daily ) Discharge Assessment & Plan Assessment and Plan Assessment: Doing well postoperative day 1 status post laparoscopic cholecystectomy. Plan of Treatment: Discharge today. I have provided the normal education for pain management and postoperative care. Further I have encouraged her to call the office or answering service with any questions or concerns 24 hours a day 7 days a week. I will have her follow-up for postop check in 7-14 days. Discharge Plan Discharge Plan Patient Disposition: Home Discharge orders & Medications Prescriptions: New docusate sodium 100 mg Capsule 100 mg PO BID Qty: 20 0RF Rx Instructions: Take while taking [place] for pain to prevent constipation hydrocodone-acetaminophen 5-325 mg Tablet 2 tab PO Q6H PRN (Reason: Pain, Severe (7-10)) Qty: 20 0RF Rx Instructions: May take 1-2 tabs as needed every 6 hours. ibuprofen 400 mg Tablet 600 mg PO Q6H Qty: 20 0RF Rx Instructions: Alternate with norco OR tylenol. Continued albuterol sulfate 2.5 mg /3 mL (0.083 %) solution for nebulization 2.5 mg inhalation Q4-6H PRN (Reason: shortness of breath or wheezing) Qty: 90 1RF norgestimate-ethinyl estradiol [Sprintec (28)] 0.25-35 mg-mcg tablet 1 tab PO DAILY Qty: 84 3RF bupropion HCl 150 mg tablet sustained-release 12 hr 150 mg PO BID Qty: 180 3RF metoprolol tartrate 50 mg tablet 50 mg PO BID Qty: 180 3RF duloxetine 60 mg capsule,delayed release(DR/EC) 60 mg PO DAILY Qty: 90 3RF albuterol sulfate 90 mcg/actuation HFA aerosol inhaler See Rx Instructions .ROUTE .COMPLEX Qty: 8.5 3RF Dose Instruction: INHALE 2 PUFFS BY MOUTH EVERY FOUR TO SIX HOURS Rx Instructions: INHALE 2 PUFFS BY MOUTH EVERY FOUR TO SIX HOURS pramipexole 0.25 mg tablet 0.5 mg .ROUTE BEDTIME PRN (Reason: restless leg) Qty: 180 3RF Rx Instructions: 0.5 mg bedtime PRN; Follow up/Referrals: Khushbu Milton MD [Physician] - (Call Thursday to arrange a follow up appointment in 7-14 days. Call anytime with questions or concerns. ) Nevin White DO [Primary Care Provider] - Diet/Activity/Treatments Diet: Regular Activity: No lifting greater than 30 lb for 4 weeks after surgery. Do not do any strenuous activity. Normal activity such as walking outside and climbing stairs, is ok. If you notice pain, stop. You may drive when you no longer are taking Narcotic pain medication. Skin/Wound/Dressing Care Other wound treatment: Ok to shower, let water run over it, don't scrub. No ointments. Pat dry afterwards. No tub baths, and don't soak underwater, for 2 weeks. There are Steristrips covering the wound but also stitches under the skin which will dissolve. Visit Report/Discharge Packet Instructions: DI for Laparoscopy, DI for Prescription Opioid Use Stand Alone Forms: Patient Portal/API, Surgery Discharge Discharge Data Primary Care Provider: Nevin White Attending Provider: Khushbu Milton Quality VTE Deep Vein Thrombosis/Pulmonary Embolism Present on Admission: No
== END 2022-12-21 13:00 | disposition home or self-care (01) ==
LOC: ED 17:04 → AC 12-20 10:41
PROVIDERS: Emergency Medicine; Admitting Provider Surgery; Emergency Provider Nurse Practitioner Critical Care Medicine; PCP Family Medicine; Referring Provider Nurse Practitioner Critical Care Medicine; Visit Provider Surgery
PROC: 0FT44ZZ Resection of Gallbladder, Percutaneous Endoscopic Approach (ICD-10-PCS; CPT 47562; principal; 2022-12-20 08:30)
DX: K80.00 Calculus of gallbladder with acute cholecystitis without obstruction (principal); Z20.822 Contact with and (suspected) exposure to COVID-19; I10 Essential (primary) hypertension; F32.A Depression, unspecified; F41.9 Anxiety disorder, unspecified
CPT/HCPCS: 47562; 36415; 74177; 76705; 80053; 81001; 81025; 82550; 83690; 84145; 84484; 85025; 86140; 87086; 87147; 87635; 96361; 96365; 96375; 96376; 99221; 99285; C9803; G0378; J0295; J0360; J0690; J1100; J1170; J1200; J1885; J2250; J2405; J2704; J2765; J3010; J7613; Q9967

== ENCOUNTER → 2023-01-01 10:00 | Outpatient (CLI) | payer OTHER, MEDICAID, SELFPAY ==
[2022-12-19 17:29] VITALS: BMI 41.5
== END ==
PROVIDERS: PCP Family Medicine; Visit Provider Nurse Practitioner Family
DX: N89.8 Other specified noninflammatory disorders of vagina (principal)
CPT/HCPCS: 87210

== ENCOUNTER → 2023-01-01 10:15 | Outpatient (CLI) | payer OTHER, MEDICAID, SELFPAY ==
[2022-12-19 17:29] VITALS: BMI 41.5
[2023-01-01 13:24] LABS: Urine Chlamydia NOT DETECTED; Urine N gonorrhoeae NOT DETECTED
[2023-01-01 16:16] LABS: Hepatitis B Surface Antigen NEGATIVE s/c (NEGATIVE)
[2023-01-01 16:33] LABS: HIV 1 & 2 Ab/Ag 4th Gen Combo NEGATIVE (NEGATIVE); Hep C Virus Ab w/Reflex Quant NEGATIVE s/c (NEGATIVE)
[2023-01-02 10:09] LABS: RPR Screen Non Reactive (Non Reactive)
[2023-01-02 11:41] LABS: HSV 2 IGG AB < 0.91 index (0.00-0.90)
== END ==
PROVIDERS: PCP Family Medicine; Referring Provider Nurse Practitioner Family; Visit Provider Nurse Practitioner Family
DX: Z20.2 Contact with and (suspected) exposure to infections with a predominantly sexual mode of transmission (principal); N89.8 Other specified noninflammatory disorders of vagina
CPT/HCPCS: 36415; 86592; 86695; 86696; 86803; 87210; 87340; 87389; 87491; 87591

== ENCOUNTER → 2023-01-14 09:50 | Outpatient (CLI) | payer OTHER, MEDICAID, SELFPAY ==
[2022-12-19 17:29] VITALS: BMI 41.5
== END ==
PROVIDERS: PCP Family Medicine; Visit Provider Nurse Practitioner Family
DX: R30.0 Dysuria (principal)
CPT/HCPCS: 81002; 81025; 87086; 87210

== ENCOUNTER → 2023-10-06 11:59 | Outpatient (CLI) | payer OTHER, MEDICAID, SELFPAY ==
[2022-12-19 17:29] VITALS: BMI 41.5
[2023-10-06 13:40] LABS: Alanine Aminotransferase 17 IU/L (<35); Albumin 3.9 g/dL (3.5-5.0); Albumin Globulin Ratio 1.1 (1.0-2.8); Alkaline Phosphatase 99 U/L (38-126); Aspartate Aminotransferase 20 IU/L (14-36); BUN Creatinine Ratio 15.3 (6-22); Bilirubin Total 0.4 mg/dL (0.2-1.3); Blood Urea Nitrogen 13 mg/dL (7-17); Calcium 9.5 mg/dL (8.4-10.2); Carbon Dioxide 30 mmol/L (22-32); Chloride 100 mmol/L (98-107); Estimated Glomerular Filt Rate > 60 mL/min (>60); Globulin 3.4 g/dL (1.7-4.1); Glucose 76 mg/dL (70-100); HEMOLYSIS < 15 (0-50); Potassium 4.4 mmol/L (3.4-5.1); Sodium 137 mmol/L (137-145); Total Protein 7.3 g/dL (6.3-8.2)
== END ==
PROVIDERS: PCP Family Medicine; Referring Provider Family Medicine; Visit Provider Family Medicine
DX: I10 Essential (primary) hypertension (principal)
CPT/HCPCS: 36415; 80053

== ENCOUNTER → 2024-08-10 16:06 | Outpatient (CLI) | payer OTHER, MEDICAID, SELFPAY ==
[2022-12-19 17:29] VITALS: BMI 41.5
--- NOTE | 2024-08-10 16:07 | DI.RAD.S_ITS ---
PROCEDURE: XR TIBIA FUBULA RT 2V INDICATIONS: Right ankle pain TECHNIQUE: 2 views of the tibia and fibula were acquired. COMPARISON: None. FINDINGS: Bones: There is no acute fracture or dislocation seen in right knee and right proximal to mid lower leg. No suspicious bony lesions. Soft tissues: No suspicious soft tissue calcifications or masses. IMPRESSION: No acute fracture or dislocation is seen in right knee and included portion of right lower leg. Dictated by: Dick Hodge M.D. on 08/11/2024 at 9:57 Approved by: Dick Hodge M.D. on 08/11/2024 at 9:58
--- NOTE | 2024-08-10 16:07 | DI.RAD.S_ITS ---
PROCEDURE: XR ANKLE RT MIN 3V INDICATIONS: Right ankle pain TECHNIQUE: 3 views of the ankle were acquired. COMPARISON: None. FINDINGS: Bones: Chronic appearing deformity involving distal fibular shaft is seen suggestive of old healed fracture. No acute fracture or dislocation. Ankle mortise is normally aligned. No suspicious bony lesions. Soft tissues: Lateral ankle soft tissue swelling is seen. No tibiotalar joint effusion. Achilles tendon appears normal. IMPRESSION: Suggestion of old healed distal fibular shaft fracture with chronic appearing deformity. No acute fracture or dislocation. Ankle mortise is congruent. Lateral ankle soft tissue swelling. Dictated by: Dick Hodge M.D. on 08/11/2024 at 9:55 Approved by: Dick Hodge M.D. on 08/11/2024 at 9:57
== END ==
PROVIDERS: PCP Family Medicine; Referring Provider Nurse Practitioner Family; Visit Provider Nurse Practitioner Family
DX: S99.911A Unspecified injury of right ankle, initial encounter (principal); X58.XXXA Exposure to other specified factors, initial encounter
CPT/HCPCS: 73590; 73610

== ENCOUNTER → 2024-11-29 09:25 | Outpatient (CLI) | payer OTHER, SELFPAY ==
[2022-12-19 17:29] VITALS: BMI 41.5
[2024-11-29 10:14] LABS: Hemoglobin A1C% w Est Avg Glu 4.9 % (4.0-6.0)
[2024-11-29 10:45] LABS: Alanine Aminotransferase 14 IU/L (<35); Albumin 4.3 g/dL (3.5-5.0); Albumin Globulin Ratio 1.4 (1.0-2.8); Alkaline Phosphatase 87 U/L (38-126); Aspartate Aminotransferase 20 IU/L (14-36); BUN Creatinine Ratio 20.5 (6-22); Bilirubin Total 0.4 mg/dL (0.2-1.3); Blood Urea Nitrogen 18 mg/dL (7-17); Calcium 9.4 mg/dL (8.4-10.2); Carbon Dioxide 30 mmol/L (22-32); Chloride 102 mmol/L (98-107); Cholesterol 155 mg/dL (140-199); Estimated Glomerular Filt Rate > 60 mL/min (>60); Globulin 3.1 g/dL (1.7-4.1); Glucose 90 mg/dL (70-100); HDL Cholesterol 79 mg/dL (40-60); HEMOLYSIS < 15 (0-50); LDL Cholesterol Calculated 44 mg/dL (<100); Potassium 4.9 mmol/L (3.4-5.1); Sodium 137 mmol/L (137-145); Total Protein 7.4 g/dL (6.3-8.2); Triglycerides 160 mg/dL (35-150)
[2024-12-01 05:11] LABS: RPR Screen Non Reactive (Non Reactive)
[2024-12-01 16:59] LABS: HIV 1 & 2 Ab/Ag 4th Gen Combo NEGATIVE (NEGATIVE)
[2024-12-03 21:07] LABS: Atopobium vaginae Low - 0 Score (.); Bact Vaginosis-Assoc. bacteria Low - 0 Score (.); Candida albicans, NAA Negative (Negative); Candida glabrata Negative (Negative); Chlamydia trachomatis Negative (Negative); Megasphaera 1 Low - 0 Score (.); Neisseria gonorrhoeae Negative (Negative); Trichomoas vaginalis by NAA Negative (Negative)
== END ==
PROVIDERS: Physician Assistant; PCP Family Medicine; Referring Provider Family Medicine; Visit Provider Family Medicine
DX: E66.01 Morbid (severe) obesity due to excess calories (principal); Z68.42 Body mass index [BMI] 45.0-49.9, adult; I10 Essential (primary) hypertension; Z30.9 Encounter for contraceptive management, unspecified; Z30.013 Encounter for initial prescription of injectable contraceptive; Z11.3 Encounter for screening for infections with a predominantly sexual mode of transmission; R73.9 Hyperglycemia, unspecified
CPT/HCPCS: 36415; 80053; 80061; 83036; 86592; 87389; 87480; 87491; 87510; 87591; 87798; 87801

== ENCOUNTER → 2025-05-16 14:07 | Outpatient (CLI) | payer OTHER, SELFPAY ==
[2022-12-19 17:29] VITALS: BMI 41.5
--- NOTE | 2025-05-16 14:09 | DI.RAD.S_ITS ---
PROCEDURE: XR HAND RT MIN 3V INDICATIONS: r/o R 3rd and 4th finger fracture TECHNIQUE: 3 views of the hand(s) acquired. COMPARISON: None. FINDINGS: Bones: No fractures or dislocations. Carpal bones are normally aligned. No suspicious bony lesions. Soft tissues: No suspicious soft tissue calcifications. IMPRESSION: No definite fractures are seen. Dictated by: Ramy Durán M.D. on 05/16/2025 at 15:36 Approved by: Ramy Durán M.D. on 05/16/2025 at 15:37
== END ==
PROVIDERS: PCP Family Medicine; Referring Provider Chiropractor; Visit Provider Chiropractor
DX: S67.10XA Crushing injury of unspecified finger(s), initial encounter (principal); X58.XXXA Exposure to other specified factors, initial encounter
CPT/HCPCS: 73130